=== PATIENT | male | born 1960 | race Caucasian/White ===

== ENCOUNTER 2018-03-22 12:14 | Emergency (ER) | payer OTHER ==
[2018-03-22] MEDS ORDERED: KETOROLAC 60 MG/2 ML VIAL IM STA (13:17)
[2018-03-22] MEDS ORDERED: traMADol 50 MG TAB PO STA (13:17)
--- NOTE | 2018-03-22 13:21 | ED ---
General Adult HPI - General Chief complaint: Extremity Problem,Nontraumatic Stated complaint: burning feeling in feet Time Seen by Provider: 03/22/18 12:45 Source: patient, RN notes reviewed Mode of arrival: ambulatory Limitations: no limitations - History of Present Illness Initial comments: This is a 4-year-old male who presents emergency Department with peripheral vascular disease. Patient states he has stents in both of his legs. Patient also states he continues to smoke. Patient states she was supposed to follow- up with Dr. Domingo about a year ago but never has. Patient states he has burning in both his feet left greater than right and it continues. Patient comes in today because he says he's been having a hard time sleeping because of the burning in his feet. She denies any injury or trauma to his legs or feet. Patient denies any recent fever chills. - Related Data Home Medications Medication Instructions Recorded Confirmed Aspirin [Adult Low Dose Aspirin EC] 81 mg PO DAILY 11/26/15 03/22/18 Clopidogrel Bisulfate [Clopidogrel] 75 mg PO DAILY 11/26/15 03/22/18 Lisinopril 10 mg PO HS 11/26/15 03/22/18 Metoprolol Tartrate [Lopressor] 25 mg PO BID 11/26/15 03/22/18 Multivitamin [Men's Multi-Vitamin] 1 tab PO DAILY 11/26/15 03/22/18 Simvastatin 40 mg PO HS 11/26/15 03/22/18 Insulin Glargine,Hum.rec.anlog 45 unit SQ HS 03/22/18 03/22/18 [Basaglar Kwikpen U-100] Allergies Allergy/AdvReac Type Severity Reaction Status Date / Time No Known Allergies Allergy Verified 03/22/18 13:45 Review of Systems ROS Statement: Those systems with pertinent positive or pertinent negative responses have been documented in the HPI. ROS Other: All systems not noted in ROS Statement are negative. Past Medical History Past Medical History: Coronary Artery Disease (CAD), Diabetes Mellitus, GERD/ Reflux, Hyperlipidemia, Hypertension, Myocardial Infarction ([place]), Vascular Disorder Additional Past Medical History / Comment(s): [place] x 4, severe PAD, severe R lower extremity claudication, IDDM. Last Myocardial Infarction Date:: 2007 History of Any Multi-Drug Resistant Organisms: None Reported Past Surgical History: Heart Catheterization, Heart Catheterization With Stent Additional Past Surgical History / Comment(s): 12/31/15 R femoral popliteal atherectomy with PTCA/stent. Other surgical hx: HEART STENTs X3, 2014 R external iliac artery stent, aortograms with run-offs, colonoscopy. Past Anesthesia/Blood Transfusion Reactions: No Reported Reaction Date of Last Stent Placement:: 2007- cardiac. Past Psychological History: Anxiety, Depression Smoking Status: Current every day smoker - Past Family History Brother(s) Family Medical History: Cancer Mother Family Medical History: Myocardial Infarction ([place]) General Exam - General Exam Comments Initial Comments: GENERAL: Patient is well-developed and well-nourished. Patient is nontoxic and well- hydrated and is in mild distress. ENT: Neck is soft and supple. No significant lymphadenopathy is noted. Oropharynx is clear. Moist mucous membranes. Neck has full range of motion without eliciting any pain. EYES: The sclera were anicteric and conjunctiva were pink and moist. Extraocular movements were intact and pupils were equal round and reactive to light. Eyelids were unremarkable. PULMONARY: Unlabored respirations. Good breath sounds bilaterally. No audible rales rhonchi or wheezing was noted. CARDIOVASCULAR: There is a regular rate and rhythm without any murmurs gallops or rubs. ABDOMEN: Soft and nontender with normal bowel sounds. SKIN: Skin is clear with no lesions or rashes and otherwise unremarkable. NEUROLOGIC: Patient is alert and oriented x3. Cranial nerves II through XII are grossly intact. Motor and sensory are also intact. Normal speech, volume and content. Symmetrical smile. MUSCULOSKELETAL: Normal extremities with adequate strength and full range of motion. No lower extremity swelling or edema. No calf tenderness. I thought I felt a repeat pulse on the left but not on the right. We used an ultrasound and got similar results. Capillary refill was poor on both feet. LYMPHATICS: No significant lymphadenopathy is noted PSYCHIATRIC: Normal psychiatric evaluation. Limitations: no limitations Course Vital Signs 03/22/18 12:44 Temperature 98.7 F Pulse Rate 90 Respiratory 18 Rate Blood Pressure 97/71 O2 Sat by Pulse 99 Oximetry Medical Decision Making - Medical Decision Making Computed tomography scan showed significant peripheral vascular disease I spoke with Dr. Greene and he agreed to see the patient in the office tomorrow patient understands this patient will call for an appointment in the morning. Patient is able to move all of his toes he has sensation in all his toes. Patient is slow Refill on all his toes. Patient states the burning sensation in bilateral feet have been ongoing a year and a little bit worse as of last few weeks. - Lab Data Result diagrams: 03/22/18 13:50 03/22/18 13:50 Lab Results 03/22/18 03/22/18 03/22/18 Range/Units 13:50 13:50 13:50 WBC 8.0 (3.8-10.6) k/uL RBC 5.43 (4.30-5.90) m/uL Hgb 15.6 (13.0-17.5) gm/dL Hct 46.9 (39.0-53.0) % MCV 86.4 (80.0-100.0) fL MCH 28.7 (25.0-35.0) pg MCHC 33.2 (31.0-37.0) g/dL RDW 13.2 (11.5-15.5) % Plt Count 155 (150-450) k/uL Neutrophils % 57 % Lymphocytes % 32 % Monocytes % 5 % Eosinophils % 3 % Basophils % 1 % Neutrophils # 4.6 (1.3-7.7) k/uL Lymphocytes # 2.6 (1.0-4.8) k/uL Monocytes # 0.4 (0-1.0) k/uL Eosinophils # 0.3 (0-0.7) k/uL Basophils # 0.0 (0-0.2) k/uL PT 10.1 (9.0-12.0) sec INR 1.0 (<1.2) APTT 23.2 (22.0-30.0) sec Sodium 136 L (137-145) mmol/L Potassium 4.9 (3.5-5.1) mmol/L Chloride 104 (98-107) mmol/L Carbon Dioxide 23 (22-30) mmol/L Anion Gap 9 mmol/L BUN 21 H (9-20) mg/dL Creatinine 0.60 L (0.66-1.25) mg/dL Est GFR (CKD-EPI)AfAm >90 (>60 ml/min/1.73 sqM) Est GFR (CKD-EPI)NonAf >90 (>60 ml/min/1.73 sqM) Glucose 253 H (74-99) mg/dL Calcium 10.3 H (8.4-10.2) mg/dL Total Bilirubin 0.6 (0.2-1.3) mg/dL AST 25 (17-59) U/L ALT 49 (21-72) U/L Alkaline Phosphatase 57 (38-126) U/L Total Protein 5.8 L (6.3-8.2) g/dL Albumin 3.7 (3.5-5.0) g/dL Disposition Clinical Impression: Peripheral vascular disease Disposition: HOME SELF-CARE Condition: Good Instructions: Peripheral Vascular Disease (ED) Additional Instructions: Patient is to follow-up with the vascular surgeon tomorrow afternoon directions will be given to him by the trade union secretary. Patient understands this and will bring a disc of his CTA. Is patient prescribed a controlled substance at d/c from ED?: No Referrals: Santiago Richardson DO [Doctor of Osteopathic Medicine] - 03/23/18 Time of Disposition: 17:14
[2018-03-22 14:11] LABS: Basophils % (A) 1 %; Eosinophils # (A) 0.3 k/uL (0-0.7); Eosinophils % (A) 3 %; HCT 46.9 % (39.0-53.0); HGB 15.6 gm/dL (13.0-17.5); Lymphocytes # (A) 2.6 k/uL (1.0-4.8); Lymphocytes % (A) 32 %; MCH 28.7 pg (25.0-35.0); MCHC 33.2 g/dL (31.0-37.0); MCV 86.4 fL (80.0-100.0); Mean Platelet Volume 8.4; Monocytes # (A) 0.4 k/uL (0-1.0); Monocytes % (A) 5 %; Neutrophils # (A) 4.6 k/uL (1.3-7.7); Neutrophils % (A) 57 %; Platelet Count 155 k/uL (150-450); RBC 5.43 m/uL (4.30-5.90); RDW 13.2 % (11.5-15.5)
[2018-03-22 14:18] LABS: Partial Thromboplastin Time 23.2 sec (22.0-30.0); Prothrombin Time 10.1 sec (9.0-12.0)
[2018-03-22] MEDS ORDERED: KETOROLAC 30 MG/ML 1 ML VIAL IVP STA (14:20)
[2018-03-22 14:31] LABS: ALT 49 U/L (21-72); AST 25 U/L (17-59); Albumin 3.7 g/dL (3.5-5.0); Alkaline Phosphatase 57 U/L (38-126); Anion Gap 9 mmol/L; Blood Urea Nitrogen 21 mg/dL (9-20); Calcium 10.3 mg/dL (8.4-10.2); Carbon Dioxide 23 mmol/L (22-30); Chloride 104 mmol/L (98-107); Glucose 253 mg/dL (74-99); Potassium 4.9 mmol/L (3.5-5.1); Sodium 136 mmol/L (137-145); Total Bilirubin 0.6 mg/dL (0.2-1.3); Total Protein 5.8 g/dL (6.3-8.2)
--- NOTE | 2018-03-22 16:01 | CT ---
EXAMINATION TYPE: CT angio lower extremity BILAT, runoff study DATE OF EXAM: 03/22/2018 COMPARISON: NONE HISTORY: 66-year-old male with pain Burning and numbness to feet x 1 year. TECHNIQUE: Contiguous axial scanning of the lower abdomen, pelvis, and bilateral lower extremities pe rformed with IV Contrast, patient injected with 125 mL of Isovue 370. Coronal/sagittal reconstruction s performed. Reconstructions generated on a dedicated independent workstation. CT DLP: 1137 mGycm Automated exposure control for dose reduction was used. FINDINGS: Partially visualized 1.8 cm centrally enhancing lesion lower pole spleen could represent a hemangioma . No dilated small bowel, free fluid, or free air. Prostate gland prominent at 4.1 cm wide with centr al calcifications. Bladder underdistended. No abnormal fluid collection in the pelvis. Bilateral kissing stents are present in the common iliac arteries. There is prominent circumferential plaque and thrombus within the visualized distal aorta with patent lumen of only 7 mm. There is grad ual cut off of the aortic contrast column just above the bifurcation and prior to the stents. The mei nt in bilateral common iliac arteries show no internal opacification. There is reconstitution of flow at the level of the common iliac bifurcations on both sides. On the right, the common femoral artery is patent. The profunda femoral artery is patent. The superficial femoral artery is patent. There is [id number] focal stenosis within the mid popliteal artery. Normal appearance to the tr ifurcation vessels in the upper leg. The peroneal artery and anterior tibial artery becomes diminutiv e at the midcalf level. The posterior tibial artery is the dominant vessel. Anterior tibial artery is seen only to the proximal ankle level. There is single vessel runoff via the posterior tibial artery . On the left, the proximal external iliac artery shows moderate focal stenosis. Common femoral arterie s patent as is the profunda femoral artery. Minimal episodic narrowing proximal superficial femoral a rtery. Popliteal artery is patent. Normal appearance to the trifurcation vessels in the upper leg. An terior tibial and peroneal arteries become diminutive at the midcalf level. Very faint anterior tibia l artery flow is noted to the proximal foot. There is dominant single vessel runoff via the posterior tibial artery. Bones: No osseous destructive process. IMPRESSION: 1. DOMINANT SINGLE VESSEL RUNOFF VIA THE POSTERIOR TIBIAL ARTERIES WITHIN THE BILATERAL LOWER EXTREMI TIES. THE BILATERAL ANTERIOR TIBIAL AND PERONEAL ARTERIES BECOME DIMINUTIVE AT THE MIDCALF LEVEL. ON THE RIGHT, THE ANTERIOR TIBIAL ARTERY IS SEEN ONLY TO THE PROXIMAL ANKLE LEVEL AND ON THE LEFT, IT IS FAINTLY SEEN INTO THE PROXIMAL FOOT. 2. BILATERAL COMMON ILIAC ARTERY STENTS. THERE IS PROMINENT PLAQUE AND THROMBUS WITHIN THE VISUALIZED DISTAL ABDOMINAL AORTA WITH CUT OFF OF THE CONTRAST COLUMN JUST PROXIMAL TO THE AORTIC BIFURCATION A ND RECONSTITUTION OF FLOW AT THE BILATERAL ILIAC ARTERY BIFURCATIONS.
[2018-03-22 17:37] VITALS: BP 118/70; PULSE 89; RESP 16; TEMP 97.8
== END 2018-03-22 17:36 | disposition home or self-care (01) ==
LOC: EC 12:14
DX: I73.9 Peripheral vascular disease, unspecified (principal); E78.5 Hyperlipidemia, unspecified; I10 Essential (primary) hypertension; I25.10 Atherosclerotic heart disease of native coronary artery without angina pectoris; E11.9 Type 2 diabetes mellitus without complications; I25.2 Old myocardial infarction; F17.200 Nicotine dependence, unspecified, uncomplicated; Z79.4 Long term (current) use of insulin; Z79.02 Long term (current) use of antithrombotics/antiplatelets; Z79.82 Long term (current) use of aspirin; Z79.899 Other long term (current) drug therapy; Z82.49 Family history of ischemic heart disease and other diseases of the circulatory system; Z95.828 Presence of other vascular implants and grafts; Z53.8 Procedure and treatment not carried out for other reasons
CPT/HCPCS: 36415; 80053; 85025; 85610; 85730; 73706; 99284; 96374; J1885; Q9967

== ENCOUNTER → 2022-08-19 | Outpatient (CLI) | payer OTHER ==
[~2022-08-19] MED LIST: REGADENOSON 0.4 MG/5 ML SYRINGE IV PRN
--- NOTE | 2022-08-19 12:42 | CA ---
Lexiscan Nuclear Stress Test Report Name: Dwight Good Exam Date: 08/19/2022 10:17 Exam Location: [place] Stress Ht (in): 67 Wt (lb): 150 BSA: 1.79 Ordering Phys: Haile Billings MD Referring Phys: Sheela Shetyt Technologist: Mario Mora Age: 62 Gender: M : 1960 Procedure CPT: Indications: I25.[address] [place] CORONARY ART ICD-10 Codes: Patient History: History of heart disease Medications: Meds past 24 hrs: Pretest Chest Pain: STRESS TEST Lexiscan Protocol Exercise Duration (min:sec): 02:[address] Depressions (mm): Angina Score: Stallings Score: Resting HR (bpm): 82 Peak HR (bpm): 95 Resting BP (mmHg): 132 / 84 Peak BP (mmHg): 134 / 75 MPHR: 156 Target HR: 133 % MPHR: 61 METS: 1.0 Total Dose: Peak Dose: Atropine: Double Product: 54689 BP Response: Stress Termination: Infusion complete Stress Symptoms: No chest pain or symptoms Stress Summary: ECG ANALYSIS Resting ECG: Sinus rhythm. Interventricular conduction delay. No arrhythmias. Stress ECG: No ECG changes from baseline with Lexiscan infusion. CONCLUSIONS No ECG evidence of ischemia with Lexiscan infusion. Nuclear test results to follow. Dr. Anthony De Souza MD (Electronically Signed) Final Date: 19 August 2022 12:42
--- NOTE | 2022-08-19 15:55 | NM ---
EXAMINATION TYPE: NM stress lexiscan cardiolite DATE OF EXAM: 08/19/2022 COMPARISON: NONE HISTORY: 62-year-old male I25.10 ATHSCL HEART DISEASE OF [place] CORONARY ART TECHNIQUE: After the intravenous administration of 9.97 mCi Tc 99m Sestamibi - Cardiolite resting SP ECT images acquired 60 minutes post injection. The patient received 0.4mg Lexiscan, 25.1 mCi Tc 99m Sestamibi - Stress images obtained [address] injection FINDINGS: Very large area of perfusion abnormality involving extensively the lateral and inferior griggs. Polar maps show reversibility along the anterolateral and inferoseptal peripheries of this very large defec t. TID is increased at 1.63. Gated analysis shows global hypokinesis with nonaugmentation of the in ferior wall and estimated left ventricular ejection fraction of 20 %. IMPRESSION: Large infarcts lateral and inferior griggs. Findings suggest clint-infarct ischemia along t he anterolateral and inferoseptal margins. An elevated TID may be seen with multivessel inducible is chemia. Diminished LVEF of 20% suggests ischemic cardiomyopathy.
== END | disposition home or self-care (01) ==
LOC: RADNMMAIN 08-09 08:10
PROVIDERS: ATTEND Internal Medicine Interventional Cardiology
DX: I25.10 Atherosclerotic heart disease of native coronary artery without angina pectoris (principal)
CPT/HCPCS: 93017; 78452; A9500; J2785

== ENCOUNTER 2023-10-25 16:53 | Inpatient (IN) | payer MEDICARE, OTHER ==
[2023-10-25] MEDS: SODIUM CHLORIDE 0.9% 1,000 ML IV STA ×3 (17:31→18:59)
[2023-10-25] MEDS: diphenhydrAMINE 50 MG/ML 1 ML VIAL IVP STA (17:32)
[2023-10-25] MEDS: METOCLOPRAMIDE 5 MG/ML 2 ML VIAL IVP STA (17:34)
[2023-10-25] MEDS: PANTOPRAZOLE 40 MG/10 ML VIAL IVP STA (17:35)
--- NOTE | 2023-10-25 17:41 | XR ---
EXAMINATION TYPE: XR chest 1V portable DATE OF EXAM: 10/25/2023 5:32 PM CLINICAL INDICATION:Male, 63 years old with history of abdominal pain; [facility] COMPARISON: Chest radiographs from 10/16/2013 TECHNIQUE: XR chest 1V portable Frontal view of the chest. FINDINGS: Lungs/Pleura: There is flattening of the diaphragm with increased lucency of the lungs. No evidence o f pneumothorax, pleural effusion or focal consolidation. Pulmonary vascularity: Unremarkable. Heart/mediastinum: Cardiomediastinal silhouette is unremarkable. Musculoskeletal: No acute osseous pathology. IMPRESSION: 1. No acute cardiopulmonary disease process. 2. COPD changes.
[2023-10-25 17:51] LABS: Basophils # (A) 0.1 k/uL (0-0.2); Basophils % (A) 0 %; Eosinophils % (A) 0 %; HCT 51.5 % (39.0-53.0); HGB 15.8 gm/dL (13.0-17.5); Hypochromasia Marked; Lymphocytes # (A) 0.8 k/uL (1.0-4.8); Lymphocytes % (A) 5 %; MCH 28.8 pg (25.0-35.0); MCHC 30.6 g/dL (31.0-37.0); Mean Platelet Volume 9.9; Monocytes # (A) 0.5 k/uL (0-1.0); Monocytes % (A) 3 %; Neutrophils % (A) 91 %; Platelet Count 171 k/uL (150-450); RBC 5.48 m/uL (4.30-5.90); RDW 12.5 % (11.5-15.5); WBC 15.4 k/uL (3.8-10.6)
[2023-10-25 18:04] LABS: ALT 44 U/L (4-49); AST 25 U/L (17-59); African American GFR (CKD) 56 (>60 ml/min/1.73 sqM); Albumin 4.7 g/dL (3.5-5.0); Alkaline Phosphatase 103 U/L (38-126); Amylase 44 U/L (30-110); Anion Gap 29 mmol/L; Blood Urea Nitrogen 59 mg/dL (9-20); Calcium 10.7 mg/dL (8.4-10.2); Carbon Dioxide 11 mmol/L (22-30); Chloride 97 mmol/L (98-107); Lipase 32 U/L (23-300); Non-African American GFR(CKD) 48 (>60 ml/min/1.73 sqM); Potassium 4.8 mmol/L (3.5-5.1); Sodium 137 mmol/L (137-145); Total Bilirubin 1.1 mg/dL (0.2-1.3); Total Protein 7.3 g/dL (6.3-8.2)
[2023-10-25 18:17] LABS: Glucose 692 mg/dL (74-99)
[2023-10-25] MEDS ORDERED: VANCOMYCIN IV PER PHARMACY 1 EACH MISC MISCELLANE PRN (18:20)
[2023-10-25 18:34] LABS: Partial Thromboplastin Time 22.2 sec (22.0-30.0); Prothrombin Time 10.8 sec (10.0-12.5)
[2023-10-25 19:11] LABS: Appearance,Urine Clear (Clear); Bilirubin,Urine Negative (Negative); Blood,Urine Negative (Negative); Color,Urine Colorless; Glucose,Urine (UA) 4+ (Negative); Leukocyte Esterase,Urine Negative (Negative); Nitrite,Urine Negative (Negative); Protein,Urine Negative (Negative); Specific Gravity,Urine 1.024 (1.001-1.035); Urobilinogen,Urine <2.0 mg/dL (<2.0)
[2023-10-25 19:16] LABS: Ketones,Urine 2+ (Negative)
[2023-10-25 19:21] LABS: VBG PH 7.18 (7.31-7.41)
--- NOTE | 2023-10-25 19:35 | CT ---
EXAMINATION TYPE: CT abdomen pelvis w con CT DLP: 724.8 mGycm, Automated exposure control for dose reduction was used. DATE OF EXAM: 10/25/2023 7:29 PM COMPARISON: 03/22/2018 CLINICAL INDICATION:Male, 63 years old with history of abdominal pain; abdominal pain, vomiting TECHNIQUE: Axial CT abdomen pelvis w con;Sagittal and coronal reformats were created on a separate w orkstation. Contrast used:80ml mL of Isovue 300 with IV Contrast, (none if empty) Oral contrast used: without Oral Contrast (none if empty) FINDINGS: LOWER CHEST: Unremarkable ABDOMEN LIVER: Right hepatic lobe simple cyst. GALLBLADDER AND BILE DUCTS: Unremarkable. PANCREAS: Unremarkable. SPLEEN: Unremarkable. ADRENAL GLANDS: Unremarkable. KIDNEYS AND URETERS: No evidence of hydronephrosis or renal calculus. The ureters are unremarkable. PELVIS BLADDER: Unremarkable REPRODUCTIVE: Unremarkable. ABDOMEN & PELVIS STOMACH AND BOWEL: No evidence of bowel obstruction. Scattered colonic diverticula are present. The a ppendix is visualized and within normal limits. PERITONEUM/RETROPERITONEUM: No evidence of pneumoperitoneum or free fluid. VASCULATURE: The [place] distal aorta is occluded with biiliac stent graft. A more anterior aortobiili ac stent graft is present which is patent. MUSCULOSKELETAL: No acute osseous abnormalities. Mild disc degeneration changes are present throughou t the thoracolumbar spine. LYMPH NODES: No gross evidence for lymphadenopathy. SOFT TISSUE/ABDOMINAL WALL: Unremarkable IMPRESSION: 1. No evidence for acute abdominal process. 2. Colonic diverticulosis. 3. [place] aortic aortobiiliac stent graft which is occluded, a more anterior graft is patent.
[2023-10-25] MEDS ORDERED: ACETAMINOPHEN TAB 325 MG TAB PO PRN (19:48)
[2023-10-25] MEDS ORDERED: ONDANSETRON 4 MG/2 ML VIAL IVP PRN (19:48)
[2023-10-25] MEDS ORDERED: MORPHINE SULFATE 4 MG/ML SYRINGE IV PRN (19:48)
[2023-10-25] MEDS ORDERED: NALOXONE 0.4 MG/ML 1 ML VIAL IV PRN (19:48)
[2023-10-25] MEDS: VANCOMYCIN 1,250 MG in SODIUM CHLORIDE 0.9% 250 ML IVPB STA (19:53)
[2023-10-25] MEDS: SODIUM CHLORIDE 0.9% 1,000 ML IV SCH (19:57)
[2023-10-25] MEDS: INSULIN REGULAR BOLUS (FROM DRIP BAG) IV ONE (20:04)
[2023-10-25] MEDS: INSULIN REGULAR 100 UNIT in SODIUM CHLORIDE 0.9% 100 ML IV SCH (20:04)
[2023-10-25 20:06] LABS: Glucose,Whole Blood 561 mg/dL (70-110)
--- NOTE | 2023-10-25 20:08 | ED ---
General Adult HPI - General Chief complaint: Abdominal Pain Stated complaint: vomiting Time Seen by Provider: 10/25/23 16:55 Source: patient, RN notes reviewed, old records reviewed Mode of arrival: EMS Limitations: no limitations - History of Present Illness Initial comments: Patient is a 63-year-old male who presents emergency department complaining of nausea, vomiting for multiple days. Concerned he may have food poisoning. Denies any brett abdominal pain. Does have a history of diabetes. Believes his sugars have been normal. Denies any chest pain to me, no shortness of breath. Has no other acute complaints at this time. Presents for further evaluation at this time. States he has attempted to be compliant with his medications. No known sick contacts or fevers. - Related Data Home Medications Medication Instructions Recorded Confirmed Aspirin [Adult Low Dose Aspirin EC] 81 mg PO HS 11/26/15 10/25/23 Clopidogrel Bisulfate [Clopidogrel] 75 mg PO DAILY 11/26/15 10/25/23 Metoprolol Tartrate [Lopressor] 25 mg PO HS 11/26/15 10/25/23 Simvastatin 40 mg PO HS 11/26/15 10/25/23 Insulin Glargine,Hum.rec.anlog 60 units SQ BID PRN 11/02/22 10/25/23 [Lantus Solostar Pen] Losartan Potassium 75 mg PO DAILY 11/02/22 10/25/23 Metoprolol Tartrate [Lopressor] 50 mg PO DAILY 11/02/22 10/25/23 hydrOXYzine HCL [Hydroxyzine HCl] 20 mg PO HS 11/02/22 10/25/23 Empagliflozin [Jardiance] 25 mg PO DAILY 10/25/23 10/25/23 Allergies Allergy/AdvReac Type Severity Reaction Status Date / Time No Known Allergies Allergy Verified 10/25/23 19:54 Review of Systems ROS Statement: Those systems with pertinent positive or pertinent negative responses have been documented in the HPI. Review of Systems: CONST: Denies fever EYES: Denies blurry vision ENT: Denies nasal congestion C/V: Denies Chest pain RESP: Denies shortness of breath GI: Endorses nausea and vomiting. Intermittent abdominal pain. : Denies dysuria SKIN: Denies rash. MSK: Denies joint pain. NEURO: Denies headache ROS Other: All systems not noted in ROS Statement are negative. Past Medical History Past Medical History: Coronary Artery Disease (CAD), Diabetes Mellitus, GERD/Reflux, Hyperlipidemia, Hypertension, Myocardial Infarction (KS), Vascular Disorder Additional Past Medical History / Comment(s): pos cologuard, sinus problems, KS x 4, severe PAD, severe R lower extremity claudication, IDDM. Last Myocardial Infarction Date:: 2007 History of Any Multi-Drug Resistant Organisms: None Reported Past Surgical History: Heart Catheterization, Heart Catheterization With Stent Additional Past Surgical History / Comment(s): 12/31/15 R femoral popliteal at herectomy with PTCA/stent. Other surgical hx: HEART STENTs X3, 2014 R external iliac artery stent, aortograms with run-offs, colonoscopy. Past Anesthesia/Blood Transfusion Reactions: No Reported Reaction Date of Last Stent Placement:: 2007- cardiac. Past Psychological History: Anxiety, Depression Smoking Status: Current every day smoker - Past Family History Brother(s) Family Medical History: Cancer Mother Family Medical History: Myocardial Infarction ([place]) General Exam - General Exam Comments Initial Comments: General: Appears in moderate distress secondary to nausea. HEAD: Normal with no signs of head trauma. EYES: PERRLA, EOMI, conjunctiva normal, no discharge. ENT: Hearing grossly intact, normal oropharynx. Dry mucous membranes. RESPIRATORY: Clear breath sounds bilaterally. No wheezes, rales, or rhonchi. C/V: Regular rate and rhythm. S1 and S2 auscultated, peripheral pulses 2+ and intact throughout ABD: Abdomen is soft, nondistended. No significant tenderness to palpation. Patient complains of general aches. EXT: Normal range of motion, no obvious deformity SKIN: No rashes or lesions observed on exposed skin. NEURO: Alert and oriented x 4. Limitations: no limitations Course Vital Signs 10/25/23 10/25/23 10/25/23 16:57 19:17 21:00 Temperature 98.0 F Pulse Rate 109 H 118 H 121 H Respiratory 20 18 20 Rate Blood Pressure 189/92 155/87 141/90 O2 Sat by Pulse 98 97 Oximetry Medical Decision Making - Medical Decision Making Was pt. sent in by a medical professional or institution (, PA, OVEN LABORER, urgent care, hospital, or skilled nursing...) When possible be specific @ -No Did you speak to anyone other than the patient for history (EMS, parent, family, police, friend...)? What history was obtained from this source @ -No Did you review nursing and triage notes (agree or disagree)? Why? @ -I reviewed and agree with nursing and triage notes, except patient denies any chest pain. Were old charts reviewed (outside hosp., previous admission, EMS record, old EKG, old radiological studies, urgent care reports/EKG's, skilled nursing records)? Report findings @ -Old charts reviewed Differential Diagnosis (chest pain, altered mental status, abdominal pain women, abdominal pain men, vaginal bleeding, weakness, fever, dyspnea, syncope, headache, dizziness, GI bleed, back pain, seizure, CVA, palpatations, mental health, musculoskeletal)? @ -MDM differential abdominal pain man. EKG interpreted by me (3pts min.). @ -As above X-rays interpreted by me (1pt min.). @ -Chest x-ray reveals no obvious acute cardiopulmonary process. CT interpreted by me (1pt min.). @ -CT abdomen pelvis reveals no obvious acute intra-abdominal process to explain his symptoms. U/S interpreted by me (1pt. min.). @ -None done What testing was considered but not performed or refused? (CT, X-rays, U/S, labs)? Why? @ -None What meds were considered but not given or refused? Why? @ -None Did you discuss the management of the patient with other professionals (professionals i.e. , PA, OVEN LABORER, lab, RT, psych nurse, licensed social worker, leaf stripper, teacher, licensed loan officer assistant, wrapper caser)? Give summary @ -No Was smoking cessation discussed for >3mins.? @ -No Was critical care preformed (if so, how long)? @ -Yes, 35 minutes. Were there social determinants of health that impacted care today? How? (Homelessness, low income, unemployed, alcoholism, drug addiction, transportation, low edu. Level, literacy, decrease access to med. care, [facility], rehab)? @ -No Was there de-escalation of care discussed even if they declined (Discuss DNR or withdrawal of care, Hospice)? DNR status @ -No What co-morbidities impacted this encounter? (DM, HTN, Smoking, COPD, CAD, Cancer, CVA, ARF, Chemo, Hep., AIDS, mental health diagnosis, sleep apnea, morbid obesity)? @ -Diabetes Was patient admitted / discharged? Hospital course, mention meds given and route, prescriptions, significant lab abnormalities, going to OR and other pertinent info. @ -Based on the patient's presentation and physical exam, patient presents emergency department with intermittent abdominal discomfort, nausea, vomiting for the last 3 days. Presents for further evaluation at this time. Will obtain abdominal laboratory studies, and symptomatically treat the patient with IV fluids, Protonix, Reglan, Benadryl. Patient was in agreement this plan. Vital signs are remarkable for tachycardia. EKG shows no signs of acute ischemia. Imaging is unremarkable for any obvious acute process. Laboratory studies returned positive for what appears to be dehydration and concern for DKA. Patient does have a white blood cell count, lactic acid above 6. Patient has an anion gap acidosis with a gap of 29. We are still waiting for VBG as well as acetone. At this time, 1817, patient will be empirically treated for sepsis, source unknown. Blood culture sent. Patient empirically started on vancomycin and Zosyn. I did update the patient and explained this could be secondary to DKA but with his persistent nausea and vomiting as well as general feeling unwell and but lab values will we will empirically treat with IV antibiotics. He was in agreement this plan. Acetone and VBG did eventually returned positive for acidosis with a VBG pH of 7.18 as well as a positive acetone and 2+ ketones in the urine. Concern for DKA at this time as well with a hyperglycemia of 554. Patient also is a mild JEEVAN with an elevated creatinine of 1.5 which is above his baseline. Patient will be started on an insulin drip at this time following the DKA protocol. We will continue antibiotics. Patient will be admitted. Patient was in agreement this plan. He appears well at this time and we will admit to stepdown. I spoke with the admitting team, MELANIE Porras of [facility] who accepted the admission. Undiagnosed new problem with uncertain prognosis? @ -No Drug Therapy requiring intensive monitoring for toxicity (Heparin, Nitro, Insulin, Cardizem)? @ -No Were any procedures done? @ -No Diagnosis/symptom? @ -Sepsis source unknown, DKA, dehydration, lactic acidosis, intractable nausea and vomiting Acute, or Chronic, or Acute on Chronic? @ -Acute Uncomplicated (without systemic symptoms) or Complicated (systemic symptoms)? @ -Complicated Side effects of treatment? @ -No Exacerbation, Progression, or Severe Exacerbation? @ -No Poses a threat to life or bodily function? How? (Chest pain, USA, [place], pneumonia, PE, COPD, DKA, ARF, appy, cholecystitis, CVA, Diverticulitis, Homicidal, Suicidal, threat to staff... and all critical care pts) @ -Yes - Lab Data Result diagrams: 10/25/23 17:30 10/25/23 19:48 Lab Results 10/25/23 10/25/23 10/25/23 Range/Units 17:30 17:30 17:30 WBC 15.4 H (3.8-10.6) k/uL RBC 5.48 (4.30-5.90) m/uL Hgb 15.8 (13.0-17.5) gm/dL Hct 51.5 (39.0-53.0) % MCV 94.0 (80.0-100.0) fL MCH 28.8 (25.0-35.0) pg MCHC 30.6 L (31.0-37.0) g/dL RDW 12.5 (11.5-15.5) % Plt Count 171 (150-450) k/uL MPV 9.9 Neutrophils % 91 % Lymphocytes % 5 % Monocytes % 3 % Eosinophils % 0 % Basophils % 0 % Neutrophils # 14.0 H (1.3-7.7) k/uL Lymphocytes # 0.8 L (1.0-4.8) k/uL Monocytes # 0.5 (0-1.0) k/uL Eosinophils # 0.0 (0-0.7) k/uL Basophils # 0.1 (0-0.2) k/uL Hypochromasia Marked PT 10.8 (10.0-12.5) sec INR 1.0 (<1.2) APTT 22.2 (22.0-30.0) sec VBG pH (7.31-7.41) VBG pCO2 (37-51) mmHg VBG HCO3 (24-28) mmol/L Sodium (137-145) mmol/L Potassium (3.5-5.1) mmol/L Chloride (98-107) mmol/L Carbon Dioxide (22-30) mmol/L Anion Gap mmol/L BUN (9-20) mg/dL Creatinine (0.66-1.25) mg/dL Est GFR (CKD-EPI)AfAm (>60 ml/min/1.73 sqM) Est GFR (CKD-EPI)NonAf (>60 ml/min/1.73 sqM) Glucose (74-99) mg/dL Lactic Ac Sepsis Rflx Plasma Lactic Acid Hayes (0.7-2.0) mmol/L Calcium (8.4-10.2) mg/dL Phosphorus (2.5-4.5) mg/dL Total Bilirubin (0.2-1.3) mg/dL AST (17-59) U/L ALT (4-49) U/L Alkaline Phosphatase (38-126) U/L Troponin I (0.000-0.034) ng/mL Total Protein (6.3-8.2) g/dL Albumin (3.5-5.0) g/dL Amylase (30-110) U/L Lipase (23-300) U/L Urine Color Colorless Urine Appearance Clear (Clear) Urine pH 5.0 (5.0-8.0) Ur Specific Flora 1.024 (1.001-1.035) Urine Protein Negative (Negative) Urine Glucose (UA) 4+ H (Negative) Urine Ketones 2+ H (Negative) Urine Blood Negative (Negative) Urine Nitrite Negative (Negative) Urine Bilirubin Negative (Negative) Urine Urobilinogen <2.0 (<2.0) mg/dL Ur Leukocyte Esterase Negative (Negative) Acetone, Qual (Negative) Influenza Type A (PCR) (Not Detectd) Influenza Type B (PCR) (Not Detectd) RSV (PCR) (Not Detectd) SARS-CoV-2 (PCR) (Not Detectd) 10/25/23 10/25/23 10/25/23 Range/Units 17:30 17:30 17:30 WBC (3.8-10.6) k/uL RBC (4.30-5.90) m/uL Hgb (13.0-17.5) gm/dL Hct (39.0-53.0) % MCV (80.0-100.0) fL MCH (25.0-35.0) pg MCHC (31.0-37.0) g/dL RDW (11.5-15.5) % Plt Count (150-450) k/uL MPV Neutrophils % % Lymphocytes % % Monocytes % % Eosinophils % % Basophils % % Neutrophils # (1.3-7.7) k/uL Lymphocytes # (1.0-4.8) k/uL Monocytes # (0-1.0) k/uL Eosinophils # (0-0.7) k/uL Basophils # (0-0.2) k/uL Hypochromasia PT (10.0-12.5) sec INR (<1.2) APTT (22.0-30.0) sec VBG pH (7.31-7.41) VBG pCO2 (37-51) mmHg VBG HCO3 (24-28) mmol/L Sodium 137 (137-145) mmol/L Potassium 4.8 (3.5-5.1) mmol/L Chloride 97 L (98-107) mmol/L Carbon Dioxide 11 L (22-30) mmol/L Anion Gap 29 mmol/L BUN 59 H (9-20) mg/dL Creatinine 1.50 H (0.66-1.25) mg/dL Est GFR (CKD-EPI)AfAm 56 (>60 ml/min/1.73 sqM) Est GFR (CKD-EPI)NonAf 48 (>60 ml/min/1.73 sqM) Glucose 692 H* (74-99) mg/dL Lactic Ac Sepsis Rflx Plasma Lactic Acid Hayes 6.4 H* (0.7-2.0) mmol/L Calcium 10.7 H (8.4-10.2) mg/dL Phosphorus (2.5-4.5) mg/dL Total Bilirubin 1.1 (0.2-1.3) mg/dL AST 25 (17-59) U/L ALT 44 (4-49) U/L Alkaline Phosphatase 103 (38-126) U/L Troponin I (0.000-0.034) ng/mL Total Protein 7.3 (6.3-8.2) g/dL Albumin 4.7 (3.5-5.0) g/dL Amylase 44 (30-110) U/L Lipase 32 (23-300) U/L Urine Color Urine Appearance (Clear) Urine pH (5.0-8.0) Ur Specific Flora (1.001-1.035) Urine Protein (Negative) Urine Glucose (UA) (Negative) Urine Ketones (Negative) Urine Blood (Negative) Urine Nitrite (Negative) Urine Bilirubin (Negative) Urine Urobilinogen (<2.0) mg/dL Ur Leukocyte Esterase (Negative) Acetone, Qual (Negative) Influenza Type A (PCR) Not Detected (Not Detectd) Influenza Type B (PCR) Not Detected (Not Detectd) RSV (PCR) Not Detected (Not Detectd) SARS-CoV-2 (PCR) Not Detected (Not Detectd) 10/25/23 10/25/23 10/25/23 Range/Units 17:30 18:17 18:41 WBC (3.8-10.6) k/uL RBC (4.30-5.90) m/uL Hgb (13.0-17.5) gm/dL Hct (39.0-53.0) % MCV (80.0-100.0) fL MCH (25.0-35.0) pg MCHC (31.0-37.0) g/dL RDW (11.5-15.5) % Plt Count (150-450) k/uL MPV Neutrophils % % Lymphocytes % % Monocytes % % Eosinophils % % Basophils % % Neutrophils # (1.3-7.7) k/uL Lymphocytes # (1.0-4.8) k/uL Monocytes # (0-1.0) k/uL Eosinophils # (0-0.7) k/uL Basophils # (0-0.2) k/uL Hypochromasia PT (10.0-12.5) sec INR (<1.2) APTT (22.0-30.0) sec VBG pH (7.31-7.41) VBG pCO2 (37-51) mmHg VBG HCO3 (24-28) mmol/L Sodium (137-145) mmol/L Potassium (3.5-5.1) mmol/L Chloride (98-107) mmol/L Carbon Dioxide (22-30) mmol/L Anion Gap mmol/L BUN (9-20) mg/dL Creatinine (0.66-1.25) mg/dL Est GFR (CKD-EPI)AfAm (>60 ml/min/1.73 sqM) Est GFR (CKD-EPI)NonAf (>60 ml/min/1.73 sqM) Glucose (74-99) mg/dL Lactic Ac Sepsis Rflx Y Plasma Lactic Acid Hayes (0.7-2.0) mmol/L Calcium (8.4-10.2) mg/dL Phosphorus (2.5-4.5) mg/dL Total Bilirubin (0.2-1.3) mg/dL AST (17-59) U/L ALT (4-49) U/L Alkaline Phosphatase (38-126) U/L Troponin I <0.012 (0.000-0.034) ng/mL Total Protein (6.3-8.2) g/dL Albumin (3.5-5.0) g/dL Amylase (30-110) U/L Lipase (23-300) U/L Urine Color Urine Appearance (Clear) Urine pH (5.0-8.0) Ur Specific Flora (1.001-1.035) Urine Protein (Negative) Urine Glucose (UA) (Negative) Urine Ketones (Negative) Urine Blood (Negative) Urine Nitrite (Negative) Urine Bilirubin (Negative) Urine Urobilinogen (<2.0) mg/dL Ur Leukocyte Esterase (Negative) Acetone, Qual Positive (Negative) Influenza Type A (PCR) (Not Detectd) Influenza Type B (PCR) (Not Detectd) RSV (PCR) (Not Detectd) SARS-CoV-2 (PCR) (Not Detectd) 10/25/23 10/25/23 10/25/23 Range/Units 18:55 19:48 19:48 WBC (3.8-10.6) k/uL RBC (4.30-5.90) m/uL Hgb (13.0-17.5) gm/dL Hct (39.0-53.0) % MCV (80.0-100.0) fL MCH (25.0-35.0) pg MCHC (31.0-37.0) g/dL RDW (11.5-15.5) % Plt Count (150-450) k/uL MPV Neutrophils % % Lymphocytes % % Monocytes % % Eosinophils % % Basophils % % Neutrophils # (1.3-7.7) k/uL Lymphocytes # (1.0-4.8) k/uL Monocytes # (0-1.0) k/uL Eosinophils # (0-0.7) k/uL Basophils # (0-0.2) k/uL Hypochromasia PT (10.0-12.5) sec INR (<1.2) APTT (22.0-30.0) sec VBG pH 7.18 L* (7.31-7.41) VBG pCO2 42 (37-51) mmHg VBG HCO3 16 L (24-28) mmol/L Sodium 136 L (137-145) mmol/L Potassium 5.0 (3.5-5.1) mmol/L Chloride 105 (98-107) mmol/L Carbon Dioxide 13 L (22-30) mmol/L Anion Gap 18 mmol/L BUN 57 H (9-20) mg/dL Creatinine 1.41 H (0.66-1.25) mg/dL Est GFR (CKD-EPI)AfAm 60 (>60 ml/min/1.73 sqM) Est GFR (CKD-EPI)NonAf 52 (>60 ml/min/1.73 sqM) Glucose 554 H* (74-99) mg/dL Lactic Ac Sepsis Rflx Plasma Lactic Acid Hayes (0.7-2.0) mmol/L Calcium (8.4-10.2) mg/dL Phosphorus 4.2 (2.5-4.5) mg/dL Total Bilirubin (0.2-1.3) mg/dL AST (17-59) U/L ALT (4-49) U/L Alkaline Phosphatase (38-126) U/L Troponin I (0.000-0.034) ng/mL Total Protein (6.3-8.2) g/dL Albumin (3.5-5.0) g/dL Amylase (30-110) U/L Lipase (23-300) U/L Urine Color Urine Appearance (Clear) Urine pH (5.0-8.0) Ur Specific Flora (1.001-1.035) Urine Protein (Negative) Urine Glucose (UA) (Negative) Urine Ketones (Negative) Urine Blood (Negative) Urine Nitrite (Negative) Urine Bilirubin (Negative) Urine Urobilinogen (<2.0) mg/dL Ur Leukocyte Esterase (Negative) Acetone, Qual (Negative) Influenza Type A (PCR) (Not Detectd) Influenza Type B (PCR) (Not Detectd) RSV (PCR) (Not Detectd) SARS-CoV-2 (PCR) (Not Detectd) - EKG Data -: EKG Interpreted by Me EKG Comments: 12-lead Electrocardiogram Interpretation Note EKG was reviewed and interpreted by myself. 12-lead ECG performed at 1735 is interpreted by me as revealing sinus tachycardia at a rate of 1735 beats per minute. [employer] is normal. AL interval is 139 ms, QRS duration is 117 ms, QTc is 397 ms.. There were no ST or T wave abnormalities to suggest myocardial ischem ia or injury. R wave progression across the precordium was satisfactory. By my interpretation this EKG is non-diagnostic for acute ischemia. Critical Care Time Critical Care Time: Yes Total Critical Care Time: 35 Disposition Clinical Impression: DKA (diabetic ketoacidosis), Sepsis, Dehydration, Nausea and vomiting Disposition: ADMITTED IP TO THIS [facility] Condition: Serious Time of Disposition: 19:35
[2023-10-25 20:27] LABS: African American GFR (CKD) 60 (>60 ml/min/1.73 sqM); Anion Gap 18 mmol/L; Blood Urea Nitrogen 57 mg/dL (9-20); Carbon Dioxide 13 mmol/L (22-30); Chloride 105 mmol/L (98-107); Non-African American GFR(CKD) 52 (>60 ml/min/1.73 sqM); Sodium 136 mmol/L (137-145)
[2023-10-25 20:29] LABS: Glucose 554 mg/dL (74-99)
[2023-10-25 21:05] LABS: Glucose,Whole Blood 415 mg/dL (70-110)
[2023-10-25 22:00] LABS: Glucose,Whole Blood 440 mg/dL (70-110)
[2023-10-25 23:13] LABS: Glucose,Whole Blood 225 mg/dL (70-110)
[2023-10-26 00:04] LABS: Glucose,Whole Blood 217 mg/dL (70-110)
[2023-10-26 01:04] LABS: Glucose,Whole Blood 117 mg/dL (70-110)
[2023-10-26 01:06] LABS: African American GFR (CKD) 71 (>60 ml/min/1.73 sqM); Anion Gap 10 mmol/L; Blood Urea Nitrogen 50 mg/dL (9-20); Carbon Dioxide 18 mmol/L (22-30); Chloride 112 mmol/L (98-107); Glucose 155 mg/dL (74-99); Non-African American GFR(CKD) 61 (>60 ml/min/1.73 sqM); Potassium 4.2 mmol/L (3.5-5.1); Sodium 140 mmol/L (137-145)
[2023-10-26 02:06] LABS: Glucose,Whole Blood 98 mg/dL (70-110)
[2023-10-26] MEDS: PIPERACILLIN-TAZOBACTAM 3.375 GM in SODIUM CHLORIDE 0.9% 100 ML IVPB SCH (02:22)
[2023-10-26] MEDS: D5-0.45% NACL WITH KCL 20MEQ/L 1,000 ML IV SCH (02:40)
[2023-10-26 03:10] LABS: Glucose,Whole Blood 103 mg/dL (70-110)
[2023-10-26] MEDS: HEPARIN SODIUM,PORCINE 5,000 UNIT/ML 1 ML VIAL SQ SCH (03:30)
[2023-10-26 04:20] LABS: Glucose,Whole Blood 163 mg/dL (70-110)
[2023-10-26 05:14] LABS: Glucose,Whole Blood 179 mg/dL (70-110)
[2023-10-26 06:05] LABS: Glucose,Whole Blood 211 mg/dL (70-110)
[2023-10-26 07:15] LABS: Glucose,Whole Blood 262 mg/dL (70-110)
[2023-10-26 08:21] LABS: Glucose,Whole Blood 245 mg/dL (70-110)
[2023-10-26] MEDS: METOPROLOL TARTRATE 50 MG TAB PO SCH (08:46)
[2023-10-26] MEDS: LOSARTAN 25 MG TAB PO SCH (08:46)
[2023-10-26] MEDS: PANTOPRAZOLE 40 MG/10 ML VIAL IV SCH (08:46)
[2023-10-26] MEDS: CLOPIDOGREL 75 MG TAB PO SCH (08:46)
[2023-10-26 08:50] LABS: African American GFR (CKD) 86 (>60 ml/min/1.73 sqM); Anion Gap 10 mmol/L; Blood Urea Nitrogen 38 mg/dL (9-20); Calcium 9.1 mg/dL (8.4-10.2); Carbon Dioxide 15 mmol/L (22-30); Chloride 113 mmol/L (98-107); Glucose 276 mg/dL (74-99); Non-African American GFR(CKD) 75 (>60 ml/min/1.73 sqM); Potassium 4.8 mmol/L (3.5-5.1); Sodium 138 mmol/L (137-145)
[2023-10-26 09:08] LABS: Glucose,Whole Blood 302 mg/dL (70-110)
[2023-10-26 09:42] LABS: Basophils % (A) 0 %; Eosinophils # (A) 0.1 k/uL (0-0.7); Eosinophils % (A) 0 %; HCT 42.3 % (39.0-53.0); HGB 13.4 gm/dL (13.0-17.5); Hypochromasia Slight; Lymphocytes # (A) 1.1 k/uL (1.0-4.8); Lymphocytes % (A) 8 %; MCHC 31.7 g/dL (31.0-37.0); MCV 91.6 fL (80.0-100.0); Mean Platelet Volume 10.1; Monocytes # (A) 0.8 k/uL (0-1.0); Monocytes % (A) 5 %; Neutrophils % (A) 85 %; Platelet Count 134 k/uL (150-450); RBC 4.62 m/uL (4.30-5.90); WBC 14.1 k/uL (3.8-10.6)
[2023-10-26 10:10] LABS: Glucose,Whole Blood 235 mg/dL (70-110)
[2023-10-26 10:45] VITALS: BMI 25.0
[2023-10-26 11:17] LABS: Glucose,Whole Blood 203 mg/dL (70-110)
[2023-10-26] MEDS ORDERED: VANCOMYCIN 1,250 MG in SODIUM CHLORIDE 0.9% 250 ML IVPB SCH (12:00)
[2023-10-26 12:06] LABS: Glucose,Whole Blood 161 mg/dL (70-110)
[2023-10-26 12:27] VITALS: BP 148/73; PULSE 110; RESP 18; TEMP 98.1
[2023-10-26 12:36] LABS: African American GFR (CKD) 87 (>60 ml/min/1.73 sqM); Anion Gap 11 mmol/L; Blood Urea Nitrogen 35 mg/dL (9-20); Calcium 9.5 mg/dL (8.4-10.2); Carbon Dioxide 16 mmol/L (22-30); Chloride 113 mmol/L (98-107); Glucose 172 mg/dL (74-99); Non-African American GFR(CKD) 75 (>60 ml/min/1.73 sqM); Potassium 4.2 mmol/L (3.5-5.1); Sodium 140 mmol/L (137-145)
[2023-10-26] MEDS ORDERED: INSULIN DETEMIR (LEVEMIR) 100 UNIT/ML SYR SQ SCH (13:15)
[2023-10-26] MEDS ORDERED: DEXTROSE 50% SYRINGE 50 ML IVP PRN ×2 (13:45)
--- NOTE | 2023-10-26 13:48 | P.HPIM ---
History of Present Illness H&P Date: 10/26/23 This is a 63-year-old male medical history of type 2 diabetes mellitus he is maintained on Lantus 60 units twice a day. He comes in with 2-day history of nausea and vomiting states that he felt like he had food poisoning after his neighbor brought over a meal. He also had 2 episodes of diarrhea. No fever or chills denies any shortness of breath no chest pain. He is not having any abdominal pain. Abdominal pelvis CT was completed in the ER that was negative for any acute abdominal process there is colonic diverticulosis and a [place] aortic aortobiiliac stent graft which is occluded with an anterior graft that is patent. Chest x-ray shows COPD changes. Initial blood work reveals a white blood cell count of 15.4, glucose of 692 metabolic acidosis and lactic acidosis. Acetone positive. Patient was admitted to the hospital for diabetic ketoacidosis and started on insulin drip. After further discussion with patient he states that he takes Lantus units twice a day only as needed states that he takes in the morning and then he takes it another time during the day if he needs and doses a depending on what he eats. 1 discussed with patient that this is not the goal of long acting insulin he becomes defensive and states that he knows his own body and takes his insulin as he needs it.. Discussed sending the patient to endocrinology for which patient states that he was seeing an director of customer acquisition but they did not get along he is no longer seeing them. REVIEW OF SYSTEMS: CONSTITUTIONAL: No fever, no malaise, no fatigue. HEENT: No recent visual problems or hearing problems. Denied any sore throat. CARDIOVASCULAR: No chest pain, orthopnea, PND, no palpitations, no syncope. PULMONARY: No shortness of breath, no cough, no hemoptysis. GASTROINTESTINAL: No diarrhea, no nausea, no vomiting, no abdominal pain. NEUROLOGICAL: No headaches, no weakness, no numbness. HEMATOLOGICAL: Denies any bleeding or petechiae. GENITOURINARY: Denies any burning micturition, frequency, or urgency. MUSCULOSKELETAL/RHEUMATOLOGICAL: Denies any joint pain, swelling, or any muscle pain. ENDOCRINE: Denies any polyuria or polydipsia. The rest of the 14-point review of systems is negative. PHYSICAL EXAMINATION: GENERAL: The patient is alert and oriented x3, not in any acute distress. Well developed, well nourished. HEENT: Pupils are round and equally reacting to light. EOMI. No scleral icterus. No conjunctival pallor. Normocephalic, atraumatic. No pharyngeal erythema. No thyromegaly. CARDIOVASCULAR: S1 and S2 present. No murmurs, rubs, or gallops. PULMONARY: Chest is clear to auscultation, no wheezing or crackles. ABDOMEN: Soft, nontender, nondistended, normoactive bowel sounds. No palpable organomegaly. MUSCULOSKELETAL: No joint swelling or deformity. EXTREMITIES: No cyanosis, clubbing, or pedal edema. NEUROLOGICAL: Gross neurological examination did not reveal any focal deficits. SKIN: No rashes. Assessment and Plan -Diabetic ketoacidosis due to poorly managed diabetes mellitus outpatient maintained on lantus 60 mg per patient twice a day "as needed" and not on any short acting insulin. -Metabolic acidosis and lactic acidosis secondary to above -Nausea vomiting diarrhea due to gastroenteritis that resolved -Leukocytosis reactive -History of coronary artery disease with prior cardiac stenting maintained on aspirin and Plavix which has been resumed -Gastroesophageal reflux disease continue on Protonix -History of hypertension patient remains on losartan and Lopressor. -hyperlipidemia continues on statin therapy -Chronic and ongoing nicotine use patient smokes 1 pack/day -Patient alcohol use -Anxiety/depression GI prophy Lasix DVT prophylaxis Full code Patient will be upgraded to a clear liquid diet and can increase as tolerated. He will be taken off the insulin drip and transition to 60 units of Levemir daily as well as sliding scale insulin. We recommend to follow-up with endocrinology on discharge. Pending repeat blood work and tolerance of diet patient may be discharged home later today. Continue with supportive care patient is longer nauseous or vomiting. The impression and plan of care has been dictated by Chiquita Gan Nurse Practitioner as directed. Dr. Dameon MD I have performed a history and physical examination and medical decision making of this patient, discussed the same with the dictator, and agree with the dictators assessment and plan as written, documented as a scribe. Based on total visit time, I have performed more than 50% of this visit. Past Medical History Past Medical History: Coronary Artery Disease (CAD), Diabetes Mellitus, GERD/Reflux, Hyperlipidemia, Hypertension, Myocardial Infarction ([place]), Vascular Disorder Additional Past Medical History / Comment(s): pos cologuard, sinus problems, [place] x 4, severe PAD, severe R lower extremity claudication, IDDM. Last Myocardial Infarction Date:: 2007 History of Any Multi-Drug Resistant Organisms: None Reported Past Surgical History: Heart Catheterization, Heart Catheterization With Stent Additional Past Surgical History / Comment(s): 12/31/15 R femoral popliteal atherectomy with PTCA/stent. Other surgical hx: HEART STENTs X3, 2014 R external iliac artery stent, aortograms with run-offs, colonoscopy. Past Anesthesia/Blood Transfusion Reactions: No Reported Reaction Date of Last Stent Placement:: 2007- cardiac. Past Psychological History: Anxiety, Depression Smoking Status: Current every day smoker - Past Family History Brother(s) Family Medical History: Cancer Mother Family Medical History: Myocardial Infarction ([place]) Medications and Allergies Home Medications Medication Instructions Recorded Confirmed Type Aspirin [Adult Low Dose Aspirin EC] 81 mg PO HS 11/26/15 10/25/23 History Clopidogrel Bisulfate [Clopidogrel] 75 mg PO DAILY 11/26/15 10/25/23 History Metoprolol Tartrate [Lopressor] 25 mg PO HS 11/26/15 10/25/23 History Simvastatin 40 mg PO HS 11/26/15 10/25/23 History Insulin Glargine,Hum.rec.anlog 60 units SQ BID PRN 11/02/22 10/25/23 History [Lantus Solostar Pen] Losartan Potassium 75 mg PO DAILY 11/02/22 10/25/23 History Metoprolol Tartrate [Lopressor] 50 mg PO DAILY 11/02/22 10/25/23 History hydrOXYzine HCL [Hydroxyzine HCl] 20 mg PO HS 11/02/22 10/25/23 History Empagliflozin [Jardiance] 25 mg PO DAILY 10/25/23 10/25/23 History Allergies Allergy/AdvReac Type Severity Reaction Status Date / Time No Known Allergies Allergy Verified 10/25/23 19:54 Physical Exam Vitals: Vital Signs Temp Pulse Pulse Resp BP BP Pulse Ox 10/26/23 04:00 98.4 F 102 H 16 149/76 98 10/26/23 02:00 109 H 18 10/26/23 00:00 109 H 18 132/71 98 10/25/23 22:20 98.2 F 113 H 18 122/58 98 10/25/23 21:00 121 H 113 H 18 141/90 10/25/23 19:17 118 H 18 155/87 97 10/25/23 16:57 98.0 F 109 H 20 189/92 98 Intake and Output 10/25/23 10/26/23 10/26/23 22:59 06:59 14:59 Intake Total 7.574 33.163 0 Output Total 800 Balance 7.574 -766.837 0 Intake: Intake, IV Titration 7.574 33.163 0 Amount Insulin Regular 100 unit 7.574 33.163 0 In Sodium Chloride 0.9% 100 ml @ 0.1 UNITS/KG/HR 7.33 mls/hr IV .[id number] [facility] Rx#:[id number] Output: Urine 800 Other: Voiding Method Urinal Urinal # Voids 1 Weight 72.575 kg Results CBC & Chem 7: 10/26/23 07:51 10/26/23 11:46 Labs: Abnormal Lab Results - Last 24 Hours (Table) 10/25/23 10/25/23 10/25/23 Range/Units 17:30 17:30 17:30 WBC 15.4 H (3.8-10.6) k/uL MCHC 30.6 L (31.0-37.0) g/dL Neutrophils # 14.0 H (1.3-7.7) k/uL Lymphocytes # 0.8 L (1.0-4.8) k/uL VBG pH (7.31-7.41) VBG HCO3 (24-28) mmol/L Sodium (137-145) mmol/L Chloride 97 L (98-107) mmol/L Carbon Dioxide 11 L (22-30) mmol/L BUN 59 H (9-20) mg/dL Creatinine 1.50 H (0.66-1.25) mg/dL Glucose 692 H* (74-99) mg/dL POC Glucose (mg/dL) (70-110) mg/dL Plasma Lactic Acid Hayes (0.7-2.0) mmol/L Calcium 10.7 H (8.4-10.2) mg/dL Phosphorus (2.5-4.5) mg/dL Urine Glucose (UA) 4+ H (Negative) Urine Ketones 2+ H (Negative) 10/25/23 10/25/23 10/25/23 Range/Units 17:30 18:55 19:48 WBC (3.8-10.6) k/uL MCHC (31.0-37.0) g/dL Neutrophils # (1.3-7.7) k/uL Lymphocytes # (1.0-4.8) k/uL VBG pH 7.18 L* (7.31-7.41) VBG HCO3 16 L (24-28) mmol/L Sodium 136 L (137-145) mmol/L Chloride (98-107) mmol/L Carbon Dioxide 13 L (22-30) mmol/L BUN 57 H (9-20) mg/dL Creatinine 1.41 H (0.66-1.25) mg/dL Glucose 554 H* (74-99) mg/dL POC Glucose (mg/dL) (70-110) mg/dL Plasma Lactic Acid Hayes 6.4 H* (0.7-2.0) mmol/L Calcium (8.4-10.2) mg/dL Phosphorus (2.5-4.5) mg/dL Urine Glucose (UA) (Negative) Urine Ketones (Negative) 10/25/23 10/25/23 10/25/23 Range/Units 20:01 21:04 21:58 WBC (3.8-10.6) k/uL MCHC (31.0-37.0) g/dL Neutrophils # (1.3-7.7) k/uL Lymphocytes # (1.0-4.8) k/uL VBG pH (7.31-7.41) VBG HCO3 (24-28) mmol/L Sodium (137-145) mmol/L Chloride (98-107) mmol/L Carbon Dioxide (22-30) mmol/L BUN (9-20) mg/dL Creatinine (0.66-1.25) mg/dL Glucose (74-99) mg/dL POC Glucose (mg/dL) 561 H 415 H 440 H (70-110) mg/dL Plasma Lactic Acid Hayes (0.7-2.0) mmol/L Calcium (8.4-10.2) mg/dL Phosphorus (2.5-4.5) mg/dL Urine Glucose (UA) (Negative) Urine Ketones (Negative) 10/25/23 10/25/23 10/26/23 Range/Units 23:03 23:59 00:12 WBC (3.8-10.6) k/uL MCHC (31.0-37.0) g/dL Neutrophils # (1.3-7.7) k/uL Lymphocytes # (1.0-4.8) k/uL VBG pH (7.31-7.41) VBG HCO3 (24-28) mmol/L Sodium (137-145) mmol/L Chloride (98-107) mmol/L Carbon Dioxide (22-30) mmol/L BUN (9-20) mg/dL Creatinine (0.66-1.25) mg/dL Glucose (74-99) mg/dL POC Glucose (mg/dL) 225 H 217 H (70-110) mg/dL Plasma Lactic Acid Hayes (0.7-2.0) mmol/L Calcium (8.4-10.2) mg/dL Phosphorus 2.1 L (2.5-4.5) mg/dL Urine Glucose (UA) (Negative) Urine Ketones (Negative) 10/26/23 10/26/23 10/26/23 Range/Units 00:12 01:01 04:13 WBC (3.8-10.6) k/uL MCHC (31.0-37.0) g/dL Neutrophils # (1.3-7.7) k/uL Lymphocytes # (1.0-4.8) k/uL VBG pH (7.31-7.41) VBG HCO3 (24-28) mmol/L Sodium (137-145) mmol/L Chloride 112 H (98-107) mmol/L Carbon Dioxide 18 L (22-30) mmol/L BUN 50 H (9-20) mg/dL Creatinine (0.66-1.25) mg/dL Glucose 155 H (74-99) mg/dL POC Glucose (mg/dL) 117 H 163 H (70-110) mg/dL Plasma Lactic Acid Hayes (0.7-2.0) mmol/L Calcium (8.4-10.2) mg/dL Phosphorus (2.5-4.5) mg/dL Urine Glucose (UA) (Negative) Urine Ketones (Negative) 10/26/23 10/26/23 10/26/23 Range/Units 04:57 06:03 07:04 WBC (3.8-10.6) k/uL MCHC (31.0-37.0) g/dL Neutrophils # (1.3-7.7) k/uL Lymphocytes # (1.0-4.8) k/uL VBG pH (7.31-7.41) VBG HCO3 (24-28) mmol/L Sodium (137-145) mmol/L Chloride (98-107) mmol/L Carbon Dioxide (22-30) mmol/L BUN (9-20) mg/dL Creatinine (0.66-1.25) mg/dL Glucose (74-99) mg/dL POC Glucose (mg/dL) 179 H 211 H 262 H (70-110) mg/dL Plasma Lactic Acid Hayes (0.7-2.0) mmol/L Calcium (8.4-10.2) mg/dL Phosphorus (2.5-4.5) mg/dL Urine Glucose (UA) (Negative) Urine Ketones (Negative) 10/26/23 10/26/23 10/26/23 Range/Units 07:51 08:09 08:58 WBC (3.8-10.6) k/uL MCHC (31.0-37.0) g/dL Neutrophils # (1.3-7.7) k/uL Lymphocytes # (1.0-4.8) k/uL VBG pH (7.31-7.41) VBG HCO3 (24-28) mmol/L Sodium (137-145) mmol/L Chloride 113 H (98-107) mmol/L Carbon Dioxide 15 L (22-30) mmol/L BUN 38 H (9-20) mg/dL Creatinine (0.66-1.25) mg/dL Glucose 276 H (74-99) mg/dL POC Glucose (mg/dL) 245 H 302 H (70-110) mg/dL Plasma Lactic Acid Hayes (0.7-2.0) mmol/L Calcium (8.4-10.2) mg/dL Phosphorus (2.5-4.5) mg/dL Urine Glucose (UA) (Negative) Urine Ketones (Negative) Thrombosis Risk Factor Assmnt - Choose All That Apply Any of the Below Risk Factors Present?: Yes Each Factor Represents 1 point: Sepsis (< 1month) Other Risk Factors: Yes Each Risk Factor Represents 2 Points: Age 61-74 years Thrombosis Risk Factor Assessment Total Risk Factor Score: 3 Thrombosis Risk Factor Assessment Level: Moderate Risk Assessment and Plan Time with Patient: Less than 30
--- NOTE | 2023-10-26 13:57 | P.DS ---
Providers Date of admission: 10/25/23 19:50 Attending physician: Burke Purcell Primary care physician: Neal Diaz [facility] Course: Patient left AGAINST MEDICAL ADVICE see medical H&P for additional information Patient Condition at Discharge: Undetermined Plan - Discharge Summary Discharge Rx Participant: No New Discharge Prescriptions: No Action Simvastatin 40 mg PO HS Metoprolol Tartrate [Lopressor] 25 mg PO HS Clopidogrel Bisulfate [Clopidogrel] 75 mg PO DAILY Aspirin [Adult Low Dose Aspirin EC] 81 mg PO HS Empagliflozin [Jardiance] 25 mg PO DAILY hydrOXYzine HCL [Hydroxyzine HCl] 20 mg PO HS Insulin Glargine,Hum.rec.anlog [Lantus Solostar Pen] 60 units SQ BID PRN PRN Reason: BS>200 Losartan Potassium 75 mg PO DAILY Metoprolol Tartrate [Lopressor] 50 mg PO DAILY Discharge Medication List Aspirin [Adult Low Dose Aspirin EC] 81 mg PO HS 11/26/15 [History] Clopidogrel Bisulfate [Clopidogrel] 75 mg PO DAILY 11/26/15 [History] Metoprolol Tartrate [Lopressor] 25 mg PO HS 11/26/15 [History] Simvastatin 40 mg PO HS 11/26/15 [History] Insulin Glargine,Hum.rec.anlog [Lantus Solostar Pen] 60 units SQ BID PRN 11/02/22 [History] Losartan Potassium 75 mg PO DAILY 11/02/22 [History] Metoprolol Tartrate [Lopressor] 50 mg PO DAILY 11/02/22 [History] hydrOXYzine HCL [Hydroxyzine HCl] 20 mg PO HS 11/02/22 [History] Empagliflozin [Jardiance] 25 mg PO DAILY 10/25/23 [History] Follow up Appointment(s)/Referral(s): Sanjuana Beltrán, AMY [REFERRING] - 1-2 Days
[2023-10-26] MEDS ORDERED: INSULIN ASPART (NovoLOG) 100 UNIT/ML VIAL SQ SCH (17:30)
[2023-10-26] MEDS ORDERED: ASPIRIN 81 MG PO SCH (21:00)
[2023-10-26] MEDS ORDERED: hydrOXYzine HCL 10 MG TAB PO SCH (21:00)
[2023-10-26] MEDS ORDERED: METOPROLOL TARTRATE 25 MG TAB PO SCH (21:00)
[2023-10-26] MEDS ORDERED: ATORVASTATIN 20 MG TAB PO SCH (21:00)
[2023-10-27] MEDS ORDERED: DAPAGLIFLOZIN PROPANEDIOL 10 MG TABLET PO SCH (09:00)
--- NOTE | 2023-10-31 14:39 | CDI ---
Documentation Clarification Form Date: 10/31/2023 From: Becky Rasmussen Admit Date: 10/25/2023 07:50:00 PM Patient Name: Dwight Good Visit Number: [id number] Discharge Date: 10/26/2023 01:57:00 PM ATTENTION: The Clinical Documentation Specialists (CDI) and [facility] Coding Staff appreciate your assistance in clarifying documentation. Please respond to the clarification below the line at the bottom and electronically sign. The CDI & [facility] Coding staff will review the response and follow-up if needed. Please note: Queries are made part of the Legal Health Record. If you have any questions, please contact the author of this message via ITS. Dr. Zee Carmichael The patient has elevated white blood cells and elevated heart rate, with sepsis noted in the ER record. Based on this information and the findings below, is there an additional diagnosis that is clinically appropriate for this patient? History/Risk Factors: 63yo presented with nausea and vomiting and was admitted for DM type 2 w/ DKA. Pt also has mild acute kidney injury on presentation. Clinical Indicators: ER noted DKA (diabetic ketoacidosis), sepsis, dehydration, nausea and vomiting). H&P notes diabetic ketoacidosis due to poorly managed diabetes mellitus outpatient maintained on lantus 60 mg per patient twice a day as needed and not on any short acting insulin. The pt left AMA Labs: 10/25 WBC 15.4, gluc 682, LA 6.4, BUN 57, Creat 1.41, Na 136, CO2 13, anion gap 18 10/26 - WBC 14.1, gluc 155-276, BUN 50-35, Creat 1.241.04, Na 140-138, CO2 18- 15, anion gap 10-11 Vitals signs: 10/25 @ 1657 98.0, 109, 20, 189/92 10/26 @ 1200 98.1, 110, 18, 148/73 Treatment: Insulin gtt, IV fluid bolus Is there an additional diagnosis that is clinically appropriate for this patient? [ ] Sepsis secondary to localized infection (please specify) [ x ] SIRS secondary to DKA with acute kidney injury [ ] Other, please specify [ ] Unable to determine SIRS Criteria: 2 or more of the following may indicate SIRS Temperature < 96.8F (36C) or > 101.0F (38.3C) Heart Rate > 90 bpm Respiratory Rate > 20 breaths/min or PaCO2 < 32 mmHg White Blood Cell Count > 12,000 or < 4,000 cells/mm3 or > 10% bands ([facility] Last Reviewed: October 2022) [facility]
== END 2023-10-26 13:57 | disposition left against medical advice (07) | DRG 637 ==
LOC: EC 16:53 → 3SCARD 19:50
PROVIDERS: ADMIT Hospitalist; ATTEND Hospitalist
DX: E11.10 Type 2 diabetes mellitus with ketoacidosis without coma (principal); R65.11 Systemic inflammatory response syndrome (SIRS) of non-infectious origin with acute organ dysfunction; N17.9 Acute kidney failure, unspecified; E11.51 Type 2 diabetes mellitus with diabetic peripheral angiopathy without gangrene; E78.5 Hyperlipidemia, unspecified; Z79.4 Long term (current) use of insulin; F32.A Depression, unspecified; I10 Essential (primary) hypertension; Z20.822 Contact with and (suspected) exposure to COVID-19; E86.0 Dehydration; F41.9 Anxiety disorder, unspecified; I25.10 Atherosclerotic heart disease of native coronary artery without angina pectoris; I25.2 Old myocardial infarction; K52.9 Noninfective gastroenteritis and colitis, unspecified; K21.9 Gastro-esophageal reflux disease without esophagitis; K57.30 Diverticulosis of large intestine without perforation or abscess without bleeding; F17.210 Nicotine dependence, cigarettes, uncomplicated; Z71.6 Tobacco abuse counseling; Z53.29 Procedure and treatment not carried out because of patient's decision for other reasons; Z79.82 Long term (current) use of aspirin; Z79.02 Long term (current) use of antithrombotics/antiplatelets; Z79.84 Long term (current) use of oral hypoglycemic drugs; Z79.899 Other long term (current) drug therapy; Z95.5 Presence of coronary angioplasty implant and graft
CPT/HCPCS: 36415; 71045; 74177; 80048; 80051; 80053; 81003; 82009; 82150; 82565; 82803; 82947; 83036; 83605; 83690; 84100; 84484; 84520; 85025; 85610; 85730; 87040; 87636; 93005; 96361; 96365; 96366; 96375; 99291

== ENCOUNTER 2024-04-08 16:17 | Inpatient (IN) | payer MEDICARE, OTHER ==
--- NOTE | 2024-04-08 16:59 | ED ---
General Adult HPI - General Source: patient, family Limitations: no limitations <Elier Rendon - Last Filed: 04/08/24 16:58> - General Source: RN notes reviewed <Bren Chakraborty - Last Filed: 04/08/24 22:42> - General Stated complaint: NVD Time Seen by Provider: 04/08/24 16:58 - History of Present Illness Initial comments: 64-year-old male with history of diabetes presenting with chief complaint of nausea and vomiting. Has been ongoing for about 3 days. No abdominal pain. No diarrhea. He does have history of DKA. (Elier Rendon) 64-year-old male with past medical history of type 2 diabetes and CAD presenting with chief complaint of vomiting x 4 days. States this occurred after he ate a burger at a restaurant and believes he had food poisoning from this. States he has not been able to keep anything down in 4 days. Denies any abdominal pain, fevers, chills, diarrhea, constipation. He does have a history of DKA. States he normally takes 60 units of insulin daily, sometimes twice daily. (Bren Chakraborty) - Related Data Home Medications Medication Instructions Recorded Confirmed Aspirin [Adult Low Dose Aspirin EC] 81 mg PO HS 11/26/15 10/25/23 Clopidogrel Bisulfate [Clopidogrel] 75 mg PO DAILY 11/26/15 10/25/23 Metoprolol Tartrate [Lopressor] 25 mg PO HS 11/26/15 10/25/23 Simvastatin 40 mg PO HS 11/26/15 10/25/23 Insulin Glargine,Hum.rec.anlog 60 units SQ BID PRN 11/02/22 10/25/23 [Lantus Solostar Pen] Losartan Potassium 75 mg PO DAILY 11/02/22 10/25/23 Metoprolol Tartrate [Lopressor] 50 mg PO DAILY 11/02/22 10/25/23 hydrOXYzine HCL [Hydroxyzine HCl] 20 mg PO HS 11/02/22 10/25/23 Empagliflozin [Jardiance] 25 mg PO DAILY 10/25/23 10/25/23 Allergies Allergy/AdvReac Type Severity Reaction Status Date / Time No Known Allergies Allergy Verified 04/08/24 17:05 Review of Systems ROS Other: All systems not noted in ROS Statement are negative. <Elier Rendon - Last Filed: 04/08/24 16:58> ROS Other: All systems not noted in ROS Statement are negative. <Bren Chakraborty - Last Filed: 04/08/24 22:42> ROS Statement: Those systems with pertinent positive or pertinent negative responses have been documented in the HPI. Past Medical History Past Medical History: Coronary Artery Disease (CAD), Diabetes Mellitus, GERD/Reflux, Hyperlipidemia, Hypertension, Myocardial Infarction ([place]), Vascular Disorder Additional Past Medical History / Comment(s): pos cologuard, sinus problems, [place] x 4, severe PAD, severe R lower extremity claudication, IDDM. Last Myocardial Infarction Date:: 2007 History of Any Multi-Drug Resistant Organisms: None Reported Past Surgical History: Heart Catheterization, Heart Catheterization With Stent Additional Past Surgical History / Comment(s): 12/31/15 R femoral popliteal atherectomy with PTCA/stent. Other surgical hx: HEART STENTs X3, 2014 R external iliac artery stent, aortograms with run-offs, colonoscopy. Past Anesthesia/Blood Transfusion Reactions: No Reported Reaction Date of Last Stent Placement:: 2007- cardiac. Past Psychological History: Anxiety, Depression Smoking Status: Current every day smoker - Past Family History Brother(s) Family Medical History: Cancer Mother Family Medical History: Myocardial Infarction ([place]) <RendonIsidoroannie - Last Filed: 04/08/24 16:58> General Exam <RendonIsidoroannie - Last Filed: 04/08/24 16:58> General appearance: alert, in no apparent distress Head exam: Present: atraumatic, normocephalic, normal inspection Eye exam: Present: normal appearance, PERRL, EOMI. Absent: scleral icterus, conjunctival injection, periorbital swelling ENT exam: Present: normal exam, mucous membranes moist Neck exam: Present: normal inspection. Absent: tenderness, meningismus, lymphadenopathy Respiratory exam: Present: normal lung sounds bilaterally. Absent: respiratory distress, wheezes, rales, rhonchi, stridor Cardiovascular Exam: Present: regular rate, normal rhythm, normal heart sounds. Absent: systolic murmur, diastolic murmur, rubs, gallop, clicks GI/Abdominal exam: Present: soft, normal bowel sounds. Absent: distended, tenderness, guarding, rebound, rigid Extremities exam: Present: normal inspection, full ROM, normal capillary refill. Absent: tenderness, pedal edema, joint swelling, calf tenderness Neurological exam: Present: alert, oriented X3 Psychiatric exam: Present: normal affect, normal mood Skin exam: Present: warm, dry, intact, normal color. Absent: rash <Bren Chakraborty - Last Filed: 04/08/24 22:42> - General Exam Comments Initial Comments: Visual Physical Exam Vital signs reviewed General: Well-appearing, nontoxic, no acute distress. Head: Normocephalic, atraumatic Eyes: PERRLA, EOMI ENT: Airway patent Chest: Nonlabored breathing Skin: No visual rash, normal skin tone Neuro: Alert and oriented 3 Musculoskeletal: No gross abnormalities (Elier Rendon) Course Vital Signs 04/08/24 04/08/24 04/08/24 17:00 20:09 22:09 Temperature 98.4 F Pulse Rate 117 H 110 H 105 H Respiratory 20 18 18 Rate Blood Pressure 153/89 147/97 150/80 O2 Sat by Pulse 98 97 96 Oximetry EKG Findings - EKG Results: EKG: interpreted by ERMD (EKG reveals sinus tachycardia with nonspecific ST changes. Ventricular rate 109 bpm, WI interval 128, QRS duration 121, QT/QTc 316/380) <ChakrabortyBren - Last Filed: 04/08/24 22:42> Medical Decision Making <Elier Rendon - Last Filed: 04/08/24 16:58> - Lab Data Result diagrams: 04/08/24 18:29 04/08/24 18:29 <ChakrabortyBren - Last Filed: 04/08/24 22:42> - Medical Decision Making I performed the quick note portion of this visit, electronically signed Elier Rendon PA-C (Elier Rendon) Was pt. sent in by a medical professional or institution ([facility], [employer]IO DIVISION CAPTAIN, urgent c are, hospital, or jail...) When possible be specific @ -No Did you speak to anyone other than the patient for history (EMS, parent, family, police, friend...)? What history was obtained from this source @ -No Did you review nursing and triage notes (agree or disagree)? Why? @ -I reviewed and agree with nursing and triage notes Were old charts reviewed (outside hosp., previous admission, EMS record, old EKG, old radiological studies, urgent care reports/EKG's, jail records)? Report findings @ -No old charts were reviewed Differential Diagnosis (chest pain, altered mental status, abdominal pain women, abdominal pain men, vaginal bleeding, weakness, fever, dyspnea, syncope, h eadache, dizziness, GI bleed, back pain, seizure, CVA, palpatations, mental health, musculoskeletal)? @ -Differential: DKA, CAD, appendicitis, cholecystitis, diverticulosis, ischemic bowel, pancreati tis, hepatitis, UTI, gastroenteritis, AAA, incarcerated hernia, bowel obstruction, constipation, inflammatory bowel, hepatitis, peptic ulcer disease, splenic infarction, perforated viscus, testicular torsion, this is not meant to be an all-inclusive list EKG interpreted by me (3pts min.). @ -As above X-rays interpreted by me (1pt min.). @ -None done CT interpreted by me (1pt min.). @ -None done U/S interpreted by me (1pt. min.). @ -None done What testing was considered but not performed or refused? (CT, X-rays, U/S, labs)? Why? @ -None What meds were considered but not given or refused? Why? @ -None Did you discuss the management of the patient with other professionals (professionals i.e. , PA, RADIO DIVISION CAPTAIN, lab, RT, psych nurse, vp digital marketing social media and crm, real estate lawyer, teacher, chief lifestyle officer, business case analyst)? Give summary @ -I spoke with Dr. Botello regarding patient who accepts admission at this time for DKA Was smoking cessation discussed for >3mins.? @ -No Was critical care preformed (if so, how long)? @ -No Were there social determinants of health that impacted care today? How? (Homelessness, low income, unemployed, alcoholism, drug addiction, transportation, low edu. Level, literacy, decrease access to med. care, care home, rehab)? @ -No Was there de-escalation of care discussed even if they declined (Discuss DNR or withdrawal of care, Hospice)? DNR status @ -No What co-morbidities impacted this encounter? (DM, HTN, Smoking, COPD, CAD, Cancer, CVA, ARF, Chemo, Hep., AIDS, mental health diagnosis, sleep apnea, morbid obesity)? @ -DM Was patient admitted / discharged? Hospital course, mention meds given and route, prescriptions, significant lab abnormalities, going to OR and other pertinent info. @ -Patient was admitted. Patient was seen and evaluated for vomiting x 4 days. Patient has a history of poorly controlled type 2 diabetes. Vitals significant for tachycardia at 117 bpm. Physical examination is unremarkable. Patient was given IV fluids and Zofran for nausea. Lab work remarkable for white blood cell count 13.2, potassium 5.3, chloride 96, CO2 18, BUN 57, glucose 424, anion gap 19, troponin 0.03, positive acetone. Patient was started on IV fluids and insulin drip. I spoke with Dr. Romero regarding patient who accepts admission at this time for DKA. Undiagnosed new problem with uncertain prognosis? @ -No Drug Therapy requiring intensive monitoring for toxicity (Heparin, Nitro, Insulin, Cardizem)? @ -No Were any procedures done? @ -No Diagnosis/symptom? @ -Diabetic ketoacidosis Acute, or Chronic, or Acute on Chronic? @ -Acute Uncomplicated (without systemic symptoms) or Complicated (systemic symptoms)? @ -Complicated Side effects of treatment? @ -No Exacerbation, Progression, or Severe Exacerbation? @ -No Poses a threat to life or bodily function? How? (Chest pain, [place], [place], pneumonia, PE, COPD, DKA, ARF, appy, cholecystitis, CVA, Diverticulitis, Homicidal, Suicidal, threat to staff... and all critical care pts) @ -Yes (Bren Chakraborty) - Lab Data Lab Results 04/08/24 04/08/24 04/08/24 Range/Units 17:07 18:29 18:29 WBC 13.2 H (3.8-10.6) k/uL RBC 5.85 (4.30-5.90) m/uL Hgb 17.5 (13.0-17.5) gm/dL Hct 56.0 H (39.0-53.0) % MCV 95.9 (80.0-100.0) fL MCH 30.0 (25.0-35.0) pg MCHC 31.3 (31.0-37.0) g/dL RDW 13.1 (11.5-15.5) % Plt Count 151 (150-450) k/uL MPV 8.8 Neutrophils % 85 % Lymphocytes % 8 % Monocytes % 5 % Eosinophils % 0 % Basophils % 0 % Neutrophils # 11.2 H (1.3-7.7) k/uL Lymphocytes # 1.1 (1.0-4.8) k/uL Monocytes # 0.7 (0-1.0) k/uL Eosinophils # 0.0 (0-0.7) k/uL Basophils # 0.0 (0-0.2) k/uL Sodium 133 L (137-145) mmol/L Potassium 5.3 H (3.5-5.1) mmol/L Chloride 96 L (98-107) mmol/L Carbon Dioxide 18 L (22-30) mmol/L Anion Gap 19 mmol/L BUN 57 H (9-20) mg/dL Creatinine 1.18 (0.66-1.25) mg/dL Est GFR (CKD-EPI)AfAm 74 (>60 ml/min/1.73 sqM) Est GFR (CKD-EPI)NonAf 64 (>60 ml/min/1.73 sqM) Glucose 424 H (74-99) mg/dL POC Glucose (mg/dL) 409 H (70-110) mg/dL POC Glu Experimental Rocketsled Mechanic ID Willard Pichardo Plasma Lactic Acid Hayes (0.7-2.0) mmol/L Calcium 10.7 H (8.4-10.2) mg/dL Total Bilirubin 1.4 H (0.2-1.3) mg/dL AST 33 (17-59) U/L ALT 29 (4-49) U/L Alkaline Phosphatase 83 (38-126) U/L Troponin I (0.000-0.034) ng/mL Total Protein 7.3 (6.3-8.2) g/dL Albumin 4.7 (3.5-5.0) g/dL Amylase 38 (30-110) U/L Lipase 28 (23-300) U/L Acetone, Qual Positive (Negative) 04/08/24 04/08/24 04/08/24 Range/Units 18:29 19:58 20:09 WBC (3.8-10.6) k/uL RBC (4.30-5.90) m/uL Hgb (13.0-17.5) gm/dL Hct (39.0-53.0) % MCV (80.0-100.0) fL MCH (25.0-35.0) pg MCHC (31.0-37.0) g/dL RDW (11.5-15.5) % Plt Count (150-450) k/uL MPV Neutrophils % % Lymphocytes % % Monocytes % % Eosinophils % % Basophils % % Neutrophils # (1.3-7.7) k/uL Lymphocytes # (1.0-4.8) k/uL Monocytes # (0-1.0) k/uL Eosinophils # (0-0.7) k/uL Basophils # (0-0.2) k/uL Sodium (137-145) mmol/L Potassium (3.5-5.1) mmol/L Chloride (98-107) mmol/L Carbon Dioxide (22-30) mmol/L Anion Gap mmol/L BUN (9-20) mg/dL Creatinine (0.66-1.25) mg/dL Est GFR (CKD-EPI)AfAm (>60 ml/min/1.73 sqM) Est GFR (CKD-EPI)NonAf (>60 ml/min/1.73 sqM) Glucose (74-99) mg/dL POC Glucose (mg/dL) 354 H (70-110) mg/dL POC Glu Experimental Rocketsled Mechanic ID Dionicio yost Plasma Lactic Acid Hayes 1.3 (0.7-2.0) mmol/L Calcium (8.4-10.2) mg/dL Total Bilirubin (0.2-1.3) mg/dL AST (17-59) U/L ALT (4-49) U/L Alkaline Phosphatase (38-126) U/L Troponin I 0.030 (0.000-0.034) ng/mL Total Protein (6.3-8.2) g/dL Albumin (3.5-5.0) g/dL Amylase (30-110) U/L Lipase (23-300) U/L Acetone, Qual (Negative) Disposition <Elier Rendon - Last Filed: 04/08/24 16:58> Time of Disposition: 21:41 <Bren Chakraborty - Last Filed: 04/08/24 22:42> Clinical Impression: Diabetic ketoacidosis Disposition: ADMITTED IP TO THIS HOSP
[2024-04-08 17:09] LABS: Glucose,Whole Blood 409 mg/dL (70-110)
[2024-04-08 18:51] LABS: ALT 29 U/L (4-49); African American GFR (CKD) 74 (>60 ml/min/1.73 sqM); Albumin 4.7 g/dL (3.5-5.0); Amylase 38 U/L (30-110); Anion Gap 19 mmol/L; Blood Urea Nitrogen 57 mg/dL (9-20); Calcium 10.7 mg/dL (8.4-10.2); Carbon Dioxide 18 mmol/L (22-30); Chloride 96 mmol/L (98-107); Glucose 424 mg/dL (74-99); Lipase 28 U/L (23-300); Non-African American GFR(CKD) 64 (>60 ml/min/1.73 sqM); Sodium 133 mmol/L (137-145); Total Bilirubin 1.4 mg/dL (0.2-1.3); Total Protein 7.3 g/dL (6.3-8.2)
[2024-04-08 18:54] LABS: Basophils % (A) 0 %; Eosinophils % (A) 0 %; HGB 17.5 gm/dL (13.0-17.5); Lymphocytes # (A) 1.1 k/uL (1.0-4.8); Lymphocytes % (A) 8 %; MCHC 31.3 g/dL (31.0-37.0); MCV 95.9 fL (80.0-100.0); Mean Platelet Volume 8.8; Monocytes # (A) 0.7 k/uL (0-1.0); Monocytes % (A) 5 %; Neutrophils # (A) 11.2 k/uL (1.3-7.7); Neutrophils % (A) 85 %; Platelet Count 151 k/uL (150-450); RBC 5.85 m/uL (4.30-5.90); RDW 13.1 % (11.5-15.5); WBC 13.2 k/uL (3.8-10.6)
[2024-04-08 18:55] LABS: AST 33 U/L (17-59); Alkaline Phosphatase 83 U/L (38-126); Potassium 5.3 mmol/L (3.5-5.1)
[2024-04-08] MEDS: SODIUM CHLORIDE 0.9% 1,000 ML IV STA (19:43)
[2024-04-08 20:00] LABS: Glucose,Whole Blood 354 mg/dL (70-110)
[2024-04-08] MEDS: SODIUM CHLORIDE 0.9% 1,000 ML IV SCH (22:00)
[2024-04-08] MEDS: INSULIN REGULAR 100 UNIT in SODIUM CHLORIDE 0.9% 100 ML IV SCH (22:02)
[2024-04-08 23:13] LABS: Appearance,Urine Clear (Clear); Bilirubin,Urine Negative (Negative); Blood,Urine Small (Negative); Color,Urine Colorless; Glucose,Urine (UA) 4+ (Negative); Leukocyte Esterase,Urine Negative (Negative); Mucus,Urine Rare /hpf; Nitrite,Urine Negative (Negative); Protein,Urine Negative (Negative); Specific Gravity,Urine 1.023 (1.001-1.035); Squamous Epithelial Cell,Urine <1 /hpf (0-4); Urobilinogen,Urine <2.0 mg/dL (<2.0); WBC,Urine 1 /hpf (0-5)
[2024-04-08 23:15] LABS: Glucose,Whole Blood 249 mg/dL (70-110)
[2024-04-08 23:44] LABS: Ketones,Urine 2+ (Negative)
[2024-04-09 00:05] LABS: Glucose,Whole Blood 205 mg/dL (70-110)
[2024-04-09] MEDS: D5-0.45% NACL WITH KCL 20MEQ/L 1,000 ML IV SCH (00:27)
[2024-04-09 00:55] LABS: African American GFR (CKD) 87 (>60 ml/min/1.73 sqM); Anion Gap 10 mmol/L; Blood Urea Nitrogen 53 mg/dL (9-20); Carbon Dioxide 20 mmol/L (22-30); Chloride 106 mmol/L (98-107); Glucose 210 mg/dL (74-99); Non-African American GFR(CKD) 75 (>60 ml/min/1.73 sqM); Sodium 136 mmol/L (137-145)
[2024-04-09 01:06] LABS: Glucose,Whole Blood 238 mg/dL (70-110)
[2024-04-09 01:21] LABS: Phosphorus 2.8 mg/dL (2.5-4.5); Potassium 4.5 mmol/L (3.5-5.1)
[2024-04-09 02:07] LABS: Glucose,Whole Blood 132 mg/dL (70-110)
[2024-04-09 03:06] LABS: Glucose,Whole Blood 111 mg/dL (70-110)
[2024-04-09 04:13] LABS: Glucose,Whole Blood 124 mg/dL (70-110)
[2024-04-09 05:13] LABS: Glucose,Whole Blood 138 mg/dL (70-110)
[2024-04-09 05:16] LABS: African American GFR (CKD) >90 (>60 ml/min/1.73 sqM); Anion Gap 8 mmol/L; Blood Urea Nitrogen 46 mg/dL (9-20); Carbon Dioxide 19 mmol/L (22-30); Chloride 109 mmol/L (98-107); Glucose 117 mg/dL (74-99); Non-African American GFR(CKD) >90 (>60 ml/min/1.73 sqM); Phosphorus 2.4 mg/dL (2.5-4.5); Potassium 4.1 mmol/L (3.5-5.1); Sodium 136 mmol/L (137-145)
[2024-04-09 06:48] LABS: Glucose,Whole Blood 195 mg/dL (70-110)
[2024-04-09 08:07] LABS: Glucose,Whole Blood 269 mg/dL (70-110)
[2024-04-09 08:56] LABS: Glucose,Whole Blood 233 mg/dL (70-110)
[2024-04-09 09:28] VITALS: RESP 18
[2024-04-09 11:34] LABS: Glucose,Whole Blood 207 mg/dL (70-110)
[2024-04-09] MEDS: INSULIN DETEMIR (LEVEMIR) 100 UNIT/ML SYR SQ SCH (13:50)
[2024-04-09] MEDS: SODIUM CHLORIDE 0.9% 1,000 ML IV SCH (13:50)
--- NOTE | 2024-04-09 15:20 | P.HPIM ---
History of Present Illness Patient is a 64-year-old male came in with complaints of nausea vomiting found to be in diabetic. Acidosis patient was on DKA protocol with improvement in anion gap his anion gap was very high on admission around 30. Patient is also on Jardiance at home. Patient takes Lantus 60 units at nighttime and other 60 units on as-needed basis. Patient has not been taking his insulin for about a week because of nausea vomiting he was having. Patient believes this is secondary to the hamburger he ate a week ago started having nausea vomiting because of continued nausea vomiting he stopped taking his insulin and has not been eating well. His ketoacidosis resolved blood sugars are fairly under control at this time. Patient was having mid abdominal pain which resolved at this time REVIEW OF SYSTEMS: CONSTITUTIONAL: No fever, no malaise, no fatigue. HEENT: No recent visual problems or hearing problems. Denied any sore throat. CARDIOVASCULAR: No chest pain, orthopnea, PND, no palpitations, no syncope. PULMONARY: No shortness of breath, no cough, no hemoptysis. GASTROINTESTINAL: As mentioned in HPI NEUROLOGICAL: No headaches, no weakness, no numbness. HEMATOLOGICAL: Denies any bleeding or petechiae. GENITOURINARY: Denies any burning micturition, frequency, or urgency. MUSCULOSKELETAL/RHEUMATOLOGICAL: Denies any joint pain, swelling, or any muscle pain. ENDOCRINE: Denies any polyuria or polydipsia. The rest of the 14-point review of systems is negative. PHYSICAL EXAMINATION: GENERAL: The patient is alert and oriented x3, not in any acute distress. Well developed, well nourished. HEENT: Pupils are round and equally reacting to light. EOMI. No scleral icterus. No conjunctival pallor. Normocephalic, atraumatic. No pharyngeal erythema. No thyromegaly. CARDIOVASCULAR: S1 and S2 present. No murmurs, rubs, or gallops. PULMONARY: Chest is clear to auscultation, no wheezing or crackles. ABDOMEN: Soft, nontender, nondistended, normoactive bowel sounds. No palpable organomegaly. MUSCULOSKELETAL: No joint swelling or deformity. EXTREMITIES: No cyanosis, clubbing, or pedal edema. NEUROLOGICAL: Gross neurological examination did not reveal any focal deficits. SKIN: No rashes. Assessment and plan -Diabetic ketoacidosis: Elevated blood sugars are secondary to noncompliance to insulin. I am unsure whether patient diabetic ketoacidosis started as euglycemic DKA and his hyperglycemia is not secondary to not taking his insulin. Patient's DKA resolved patient is resumed on home regimen of insulin. I am discontinuing Jardiance because of possibility of euglycemic diabetic ketoacidosis. Patient will benefit from basal bolus regimen, I recommended patient he takes 60 units of Lantus daily along with 20 units of Premeal insulin and sliding scale but patient declined to use that regimen and instead wants to go back on his home regimen. Patient will be discharged on home regimen of insulin with discontinuation of Jardiance and follow-up with primary care physician and physicist acoustics as an outpatient. -Acute renal failure: Secondary to severe dehydration from DKA improved at this time -Hyperlipidemia -Coronary disease with previous stents in the past -Hypertension -Peripheral artery disease For above-mentioned chronic medical problems patient will can continue his home regimen DVT prophylaxis: Patient is being discharged today Past Medical History Past Medical History: Coronary Artery Disease (CAD), Diabetes Mellitus, GERD/Reflux, Hyperlipidemia, Hypertension, Myocardial Infarction ([place]), Vascular Disorder Additional Past Medical History / Comment(s): pos cologuard, sinus problems, [place] x 4, severe PAD, severe R lower extremity claudication, IDDM. Last Myocardial Infarction Date:: 2007 History of Any Multi-Drug Resistant Organisms: None Reported Past Surgical History: Heart Catheterization, Heart Catheterization With Stent Additional Past Surgical History / Comment(s): 12/31/15 R femoral popliteal atherectomy with PTCA/stent. Other surgical hx: HEART STENTs X3, 2014 R external iliac artery stent, aortograms with run-offs, colonoscopy. Past Anesthesia/Blood Transfusion Reactions: No Reported Reaction Date of Last Stent Placement:: 2007- cardiac. Past Psychological History: Anxiety, Depression Additional Psychological History / Comment(s): Pt lives alone. He has a cane but does not use it. He is independent. He drives. Smoking Status: Current every day smoker Past Alcohol Use History: None Reported Additional Past Alcohol Use History / Comment(s): STARTED SMOKING 1971, SMOKES 1PPD. Past Drug Use History: None Reported Additional Drug Use History / Comment(s): Pt smokes daily - Past Family History Brother(s) Family Medical History: Cancer Mother Family Medical History: Myocardial Infarction ([place]) Medications and Allergies Home Medications Medication Instructions Recorded Confirmed Type Aspirin [Adult Low Dose Aspirin EC] 81 mg PO HS 11/26/15 04/09/24 History Clopidogrel Bisulfate [Clopidogrel] 75 mg PO DAILY 11/26/15 04/09/24 History Metoprolol Tartrate [Lopressor] 25 mg PO TID 11/26/15 04/09/24 History Simvastatin 40 mg PO HS 11/26/15 04/09/24 History Insulin Glargine,Hum.rec.anlog 60 units SQ BID PRN 11/02/22 04/09/24 History [Lantus Solostar Pen] Losartan Potassium 50 mg PO DAILY 11/02/22 04/09/24 History hydrOXYzine HCL [Hydroxyzine HCl] 20 mg PO HS 11/02/22 04/09/24 History Allergies Allergy/AdvReac Type Severity Reaction Status Date / Time No Known Allergies Allergy Verified 04/09/24 09:08 Physical Exam Vitals: Vital Signs Temp Pulse Pulse Resp BP BP Pulse Ox 04/09/24 12:00 98.4 F 79 18 166/94 95 04/09/24 08:00 98.7 F 102 H 18 158/90 04/09/24 05:00 95 20 129/75 95 04/09/24 04:00 99 20 150/94 96 04/09/24 03:09 103 H 20 115/72 95 04/09/24 01:02 105 H 18 144/88 94 L 04/09/24 00:06 105 H 18 154/96 96 04/08/24 23:15 123/80 04/08/24 22:09 105 H 18 150/80 96 04/08/24 20:09 110 H 18 147/97 97 04/08/24 17:00 98.4 F 117 H 20 153/89 98 Intake and Output 04/09/24 04/09/24 04/09/24 06:59 14:59 22:59 Intake Total 34.275 601.202 Output Total 1400 Balance 34.275 -798.798 Intake: IV 600 D5-0.45% NaCl with KCl 600 20Meq/l 1,000 ml @ 150 mls/hr IV .Q6H40M [facility] Rx# :[id number] Intake, IV Titration 34.275 1.202 Amount Insulin Regular 100 unit 34.275 1.202 In Sodium Chloride 0.9% 100 ml @ 0.1 UNITS/KG/HR 6.872 mls/hr IV .[id number] [facility] Rx#:[id number] Output: Urine 1400 Other: Voiding Method Urinal Results CBC & Chem 7: 04/08/24 18:29 04/09/24 04:17 Labs: Abnormal Lab Results - Last 24 Hours (Table) 04/08/24 04/08/24 04/08/24 Range/Units 17:07 18:29 18:29 WBC 13.2 H (3.8-10.6) k/uL Hct 56.0 H (39.0-53.0) % Neutrophils # 11.2 H (1.3-7.7) k/uL Sodium 133 L (137-145) mmol/L Potassium 5.3 H (3.5-5.1) mmol/L Chloride 96 L (98-107) mmol/L Carbon Dioxide 18 L (22-30) mmol/L BUN 57 H (9-20) mg/dL Glucose 424 H (74-99) mg/dL POC Glucose (mg/dL) 409 H (70-110) mg/dL Calcium 10.7 H (8.4-10.2) mg/dL Phosphorus (2.5-4.5) mg/dL Total Bilirubin 1.4 H (0.2-1.3) mg/dL Urine Glucose (UA) (Negative) Urine Ketones (Negative) Urine Blood (Negative) Urine Mucus (None) /hpf 04/08/24 04/08/24 04/08/24 Range/Units 19:58 22:30 23:14 WBC (3.8-10.6) k/uL Hct (39.0-53.0) % Neutrophils # (1.3-7.7) k/uL Sodium (137-145) mmol/L Potassium (3.5-5.1) mmol/L Chloride (98-107) mmol/L Carbon Dioxide (22-30) mmol/L BUN (9-20) mg/dL Glucose (74-99) mg/dL POC Glucose (mg/dL) 354 H 249 H (70-110) mg/dL Calcium (8.4-10.2) mg/dL Phosphorus (2.5-4.5) mg/dL Total Bilirubin (0.2-1.3) mg/dL Urine Glucose (UA) 4+ H (Negative) Urine Ketones 2+ H (Negative) Urine Blood Small H (Negative) Urine Mucus Rare H (None) /hpf 04/09/24 04/09/24 04/09/24 Range/Units 00:03 00:09 01:04 WBC (3.8-10.6) k/uL Hct (39.0-53.0) % Neutrophils # (1.3-7.7) k/uL Sodium 136 L (137-145) mmol/L Potassium (3.5-5.1) mmol/L Chloride (98-107) mmol/L Carbon Dioxide 20 L (22-30) mmol/L BUN 53 H (9-20) mg/dL Glucose 210 H (74-99) mg/dL POC Glucose (mg/dL) 205 H 238 H (70-110) mg/dL Calcium (8.4-10.2) mg/dL Phosphorus (2.5-4.5) mg/dL Total Bilirubin (0.2-1.3) mg/dL Urine Glucose (UA) (Negative) Urine Ketones (Negative) Urine Blood (Negative) Urine Mucus (None) [facility] 04/09/24 04/09/24 04/09/24 Range/Units 02:06 03:04 04:09 WBC (3.8-10.6) k/uL Hct (39.0-53.0) % Neutrophils # (1.3-7.7) k/uL Sodium (137-145) mmol/L Potassium (3.5-5.1) mmol/L Chloride (98-107) mmol/L Carbon Dioxide (22-30) mmol/L BUN (9-20) mg/dL Glucose (74-99) mg/dL POC Glucose (mg/dL) 132 H 111 H 124 H (70-110) mg/dL Calcium (8.4-10.2) mg/dL Phosphorus (2.5-4.5) mg/dL Total Bilirubin (0.2-1.3) mg/dL Urine Glucose (UA) (Negative) Urine Ketones (Negative) Urine Blood (Negative) Urine Mucus (None) /hpf 04/09/24 04/09/24 04/09/24 Range/Units 04:17 05:11 06:43 WBC (3.8-10.6) k/uL Hct (39.0-53.0) % Neutrophils # (1.3-7.7) k/uL Sodium 136 L (137-145) mmol/L Potassium (3.5-5.1) mmol/L Chloride 109 H (98-107) mmol/L Carbon Dioxide 19 L (22-30) mmol/L BUN 46 H (9-20) mg/dL Glucose 117 H (74-99) mg/dL POC Glucose (mg/dL) 138 H 195 H (70-110) mg/dL Calcium (8.4-10.2) mg/dL Phosphorus 2.4 L (2.5-4.5) mg/dL Total Bilirubin (0.2-1.3) mg/dL Urine Glucose (UA) (Negative) Urine Ketones (Negative) Urine Blood (Negative) Urine Mucus (None) /hpf 04/09/24 04/09/24 04/09/24 Range/Units 08:06 08:55 11:33 WBC (3.8-10.6) k/uL Hct (39.0-53.0) % Neutrophils # (1.3-7.7) k/uL Sodium (137-145) mmol/L Potassium (3.5-5.1) mmol/L Chloride (98-107) mmol/L Carbon Dioxide (22-30) mmol/L BUN (9-20) mg/dL Glucose (74-99) mg/dL POC Glucose (mg/dL) 269 H 233 H 207 H (70-110) mg/dL Calcium (8.4-10.2) mg/dL Phosphorus (2.5-4.5) mg/dL Total Bilirubin (0.2-1.3) mg/dL Urine Glucose (UA) (Negative) Urine Ketones (Negative) Urine Blood (Negative) Urine Mucus (None) /hpf
--- NOTE | 2024-04-09 15:20 | P.DS ---
Providers Date of admission: 04/08/24 21:25 Attending physician: Burke Purcell Primary care physician: Neal Diaz Bradley Hospital Course: Patient is a 64-year-old male came in with complaints of nausea vomiting found to be in diabetic. Acidosis patient was on DKA protocol with improvement in anion gap his anion gap was very high on admission around 30. Patient is also on Jardiance at home. Patient takes Lantus 60 units at nighttime and other 60 units on as-needed basis. Patient has not been taking his insulin for about a week because of nausea vomiting he was having. Patient believes this is secondary to the hamburger he ate a week ago started having nausea vomiting because of continued nausea vomiting he stopped taking his insulin and has not been eating well. His ketoacidosis resolved blood sugars are fairly under control at this time. Patient was having mid abdominal pain which resolved at this time PHYSICAL EXAMINATION: GENERAL: The patient is alert and oriented x3, not in any acute distress. Well developed, well nourished. HEENT: Pupils are round and equally reacting to light. EOMI. No scleral icterus. No conjunctival pallor. Normocephalic, atraumatic. No pharyngeal erythema. No thyromegaly. CARDIOVASCULAR: S1 and S2 present. No murmurs, rubs, or gallops. PULMONARY: Chest is clear to auscultation, no wheezing or crackles. ABDOMEN: Soft, nontender, nondistended, normoactive bowel sounds. No palpable organomegaly. MUSCULOSKELETAL: No joint swelling or deformity. EXTREMITIES: No cyanosis, clubbing, or pedal edema. NEUROLOGICAL: Gross neurological examination did not reveal any focal deficits. SKIN: No rashes. Assessment and plan -Diabetic ketoacidosis: Elevated blood sugars are secondary to noncompliance to insulin. I am unsure whether patient diabetic ketoacidosis started as euglycemic DKA and his hyperglycemia is not secondary to not taking his insulin. Patient's DKA resolved patient is resumed on home regimen of insulin. I am discontinuing Jardiance because of possibility of euglycemic diabetic ketoacidosis. Patient will benefit from basal bolus regimen, I recommended patient he takes 60 units of Lantus daily along with 20 units of Premeal insulin and sliding scale but patient declined to use that regimen and instead wants to go back on his home regimen. 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 -Acute renal failure: Secondary to severe dehydration from DKA improved at this time -Hyperlipidemia -Coronary disease with previous stents in the past -Hypertension -Peripheral artery disease For above-mentioned chronic medical problems patient will can continue his home regimen Patient is being discharged today Plan - Discharge Summary New Discharge Prescriptions: Discontinued Empagliflozin [Jardiance] 25 mg PO DAILY No Action Simvastatin 40 mg PO HS Metoprolol Tartrate [Lopressor] 25 mg PO TID Clopidogrel Bisulfate [Clopidogrel] 75 mg PO DAILY Aspirin [Adult Low Dose Aspirin EC] 81 mg PO HS hydrOXYzine HCL [Hydroxyzine HCl] 20 mg PO HS Insulin Glargine,Hum.rec.anlog [Lantus Solostar Pen] 60 units SQ BID PRN PRN Reason: Blood Sugar - High >300 Losartan Potassium 50 mg PO DAILY Discharge Medication List Aspirin [Adult Low Dose Aspirin EC] 81 mg PO HS 11/26/15 [History] Clopidogrel Bisulfate [Clopidogrel] 75 mg PO DAILY 11/26/15 [History] Metoprolol Tartrate [Lopressor] 25 mg PO TID 11/26/15 [History] Simvastatin 40 mg PO HS 11/26/15 [History] Insulin Glargine,Hum.rec.anlog [Lantus Solostar Pen] 60 units SQ BID PRN 11/02/22 [History] Losartan Potassium 50 mg PO DAILY 11/02/22 [History] hydrOXYzine HCL [Hydroxyzine HCl] 20 mg PO HS 11/02/22 [History] Follow up Appointment(s)/Referral(s): Jayden Zee MD [REFERRING] - 1 Week Neal Jackson [Primary Care Provider] - 3 Days Discharge Disposition: HOME SELF-CARE
[2024-04-09 18:29] LABS: Glucose,Whole Blood 118 mg/dL (70-110)
[2024-04-09] MEDS: INSULIN ASPART (NovoLOG) 100 UNIT/ML VIAL SQ SCH (18:30)
[2024-04-09] MEDS: METOPROLOL TARTRATE 25 MG TAB PO SCH (18:30)
[2024-04-09 18:34] VITALS: BP 110/50; PULSE 111; TEMP 98.3
[2024-04-09] MEDS ORDERED: ATORVASTATIN 20 MG TAB PO SCH (21:00)
[2024-04-09] MEDS ORDERED: ASPIRIN 81 MG PO SCH (21:00)
[2024-04-09] MEDS ORDERED: hydrOXYzine HCL 10 MG TAB PO SCH (21:00)
[2024-04-10] MEDS ORDERED: LOSARTAN 50 MG TAB PO SCH (09:00)
[2024-04-10] MEDS ORDERED: DAPAGLIFLOZIN PROPANEDIOL 10 MG TABLET PO SCH (09:00)
[2024-04-10] MEDS ORDERED: CLOPIDOGREL 75 MG TAB PO SCH (09:00)
--- NOTE | 2024-04-11 08:28 | CDI ---
Documentation Clarification Form Date: 04/11/24 From: Yessenia Ruiz Admit Date: 04/08/2024 09:25:00 PM Patient Name: Dwight Good Visit Number: [id number] Discharge Date: 04/09/2024 07:58:00 PM ATTENTION: The Clinical Documentation Specialists (CDI) and [facility] Coding Staff appreciate your assistance in clarifying documentation. Please respond to the clarification below the line at the bottom and electronically sign. The CDI & [facility] Coding staff will review the response and follow-up if needed. Please note: Queries are made part of the Legal Health Record. If you have any questions, please contact the author of this message via ITS. Dr. Maribell Xiao, JEEVAN is documented in the H&P and discharge summary which may lack sufficient clinical evidence/support in the medical record. Additional clarification is requested. Patient history/risk factors: T2DKA, T2dm w PVD, HTN, depression, S/P cardiac stent(s) and peripheral vascular stent(s), smoker Clinical Indicators: H&P & DS: Acute renal failure: Secondary to severe dehydration from DKA improved at this time DOS: 04/08-04/09 BUN: 57, 53, 46 Cr: 1.18, 1.04, 0.86 GFR: 64, 75, >90 Treatment: IV fluids After work up and study, please which diagnosis is most appropriate? [ ] Acute Kidney Injury ruled out [ ] Acute Kidney Injury is a valid diagnosis as evidenced by the following: [ x] Acute renal insufficiency [ ] Unable to determine [ ] Other, please specify Reference: KDIGO JEEVAN Criteria An increase in serum creatinine by greater than or equal to 0.3 mg/dL within 48 hours; An increase in serum creatinine by greater than or equal to 1.5 times baseline, which is known or presumed to have occurred within the prior 7 days; A urine volume less than 0.5 ml/kg/h for 6 hours. When the baseline is unknown the lowest creatinine during admission assumed to be baseline MTDD
== END 2024-04-09 19:58 | disposition home or self-care (01) | DRG 639 ==
LOC: EC 16:17 → 3SCARD 21:25 → 4SSUR 04-09 15:19
PROVIDERS: ADMIT Hospitalist; ATTEND Hospitalist
DX: E11.10 Type 2 diabetes mellitus with ketoacidosis without coma (principal); N28.9 Disorder of kidney and ureter, unspecified; E78.5 Hyperlipidemia, unspecified; E11.51 Type 2 diabetes mellitus with diabetic peripheral angiopathy without gangrene; I10 Essential (primary) hypertension; F32.A Depression, unspecified; Z79.4 Long term (current) use of insulin; Z28.310 Unvaccinated for COVID-19; T38.3X6A Underdosing of insulin and oral hypoglycemic [antidiabetic] drugs, initial encounter; E86.0 Dehydration; I25.10 Atherosclerotic heart disease of native coronary artery without angina pectoris; F17.210 Nicotine dependence, cigarettes, uncomplicated; F41.9 Anxiety disorder, unspecified; I25.2 Old myocardial infarction; K21.9 Gastro-esophageal reflux disease without esophagitis; Z79.82 Long term (current) use of aspirin; Z79.02 Long term (current) use of antithrombotics/antiplatelets; Z79.84 Long term (current) use of oral hypoglycemic drugs; Z79.899 Other long term (current) drug therapy; Z95.820 Peripheral vascular angioplasty status with implants and grafts; Z95.5 Presence of coronary angioplasty implant and graft; Z60.2 Problems related to living alone
CPT/HCPCS: 36415; 80051; 80053; 81001; 82009; 82150; 82565; 82947; 83605; 83690; 83735; 84100; 84484; 84520; 85025; 93005; 96360; 96361; 96365; 96366; 99285

== ENCOUNTER → 2025-02-04 | Outpatient (CLI) | payer MEDICARE, OTHER ==
[2025-02-04 15:18] LABS: BUN/Creat Ratio 30.83 Ratio (12.00-20.00); Chloride 107 mmol/L (96-109); Chol/HDL Ratio 3.99 Ratio; Glucose 139 mg/dL (70-110); LDL Cholesterol,Calculated 69.8 mg/dL (0.0-131.0); Potassium 4.6 mmol/L (3.5-5.5); Sodium 140 mmol/L (135-145)
[2025-02-04 15:19] LABS: ALT 28 U/L (10-49); AST 18 U/L (14-35); Albumin 4.1 g/dL (3.8-4.9); Albumin/Globulin Ratio 1.71 Ratio (1.60-3.17); Alkaline Phosphatase 93 U/L (41-126); Calcium 10.4 mg/dL (8.7-10.3); Carbon Dioxide 24.7 mmol/L (21.6-31.8); Globulin 2.4 g/dL (1.6-3.3); Total Bilirubin 0.3 mg/dL (0.3-1.2); Total Protein 6.5 g/dL (6.2-8.2)
== END | disposition home or self-care (01) ==
LOC: LABWHC1 09:15
PROVIDERS: ATTEND Internal Medicine Cardiovascular Disease
DX: I10 Essential (primary) hypertension (principal); I25.10 Atherosclerotic heart disease of native coronary artery without angina pectoris; E10.9 Type 1 diabetes mellitus without complications
CPT/HCPCS: 36415; 80053; 80061; 83036